=== PATIENT | male | born 1975 | race Caucasian/White ===

== ENCOUNTER 2017-01-09 00:44 | Emergency (ER) | payer SELFPAY ==
--- NOTE | 2017-01-09 01:02 | Emergency Department Record ---
History of Present Illness - General Chief complaint: Nausea, Vomiting, Diarrhea Stated complaint: FOOD POISONING Time Seen by Provider: 01/09/17 01:01 Source: Patient Mode of Arrival: Ambulatory Limitations: No limitations - History of Present Illness Initial comments: The patient is here due to a one hour hx of nausea, vomiting, and loose stools. He denies any fever, chills, dysuria, abdominal or back pain. The patient states he vomited multiple times over the last hour but now feels a lot better. He denies any recent sick contacts and states he may have eaten some bad pizza a few hours ago. MD complaint: Diarrhea, Nausea, Vomiting Onset/Timin -: Hour(s) Description of Vomiting: Bilious Description of Diarrhea: Water Associated Abdominal Pain: Yes (Only when having diarrhea) Associated Symptoms: Fever/chills, Nausea/vomiting - Related Data Previous Rx's Medication Instructions Recorded Ciprofloxacin HCl [Cipro] 500 mg PO Q12HR #14 tablet 01/09/17 Ondansetron [Zofran Odt] 4 mg SL .Q4-6H PRN #8 tab.rapdis 01/09/17 Allergies Allergy/AdvReac Type Severity Reaction Status Date / Time Penicillins Allergy SWELLING Verified 01/09/17 00:49 OF THE FACE Sulfa (Sulfonamide Allergy PT UNSURE Verified 01/09/17 00:49 Antibiotics) OF REACTION Travel Screening - Travel/Exposure Within Last 30 Days Have you traveled within the last 30 days?: No Review of Systems Constitutional: Denies: Chills, Fever Eyes: Denies: Eye discharge ENT: Denies: Congestion Respiratory: Denies: Cough, Dyspnea Past Medical History - SOCIAL HISTORY Smoking Status: Heavy tobacco smoker (>10/day) Alcohol Use: None Drug Use: None - RESPIRATORY Hx Respiratory Disorders: No - CARDIOVASCULAR Hx Cardio Disorders: No - NEURO Hx Neuro Disorders: No - GI Hx GI Disorders: No - Hx Genitourinary Disorders: No - ENDOCRINE Hx Endocrine Disorders: No - MUSCULOSKELETAL Hx Musculoskeletal Disorders: No - PSYCH Hx Psych Problems: Yes Hx Anxiety: Yes - HEMATOLOGY/ONCOLOGY Hx Hematology/Oncology Disorders: No Family Medical History Any Significant Family History?: Yes Hx Seizures: Father Hx Stroke: Father Physical Exam - General General Appearance: Alert, Oriented x3, Cooperative, No acute distress - Head Head exam: Atraumatic, Normocephalic, Normal inspection - Eye Eye exam: Normal appearance, PERRL - ENT Throat exam: Normal inspection. negative: Tonsillar erythema, Tonsillar exudate - Neck Neck exam: Normal inspection, Full ROM. negative: Tenderness - Respiratory Respiratory exam: Normal lung sounds bilaterally. negative: Respiratory distress - Cardiovascular Cardiovascular Exam: Regular rate, Normal rhythm, Normal heart sounds - GI/Abdominal GI/Abdominal exam: Soft, Normal bowel sounds. negative: Guarding, Rebound, Rigid, Tenderness (The abdomen is very soft and nontender in all 4 quads.) - Extremities Extremities exam: Normal inspection, Full ROM, Normal capillary refill. negative: Tenderness - Neurological Neurological exam: Normal gait. negative: Abnormal gait Course - Reevaluation(s) Reevaluation #1: The patient feels 100% improved and denies any pain, nausea or dysuria. I did discuss the urine result and he denies any urinary issues. I explained to him that there does seem to be a minor infection and he should see his PCP next week for recheck. 01/09/17 01:48 Medical Decision Making - Data Complexity MDM Data: Labs Ordered and/or Reviewed Disposition Disposition: Discharge Clinical Impression: Gastroenteritis Disposition: Home, Self-Care Condition: (1) Good Instructions: Acute Nausea and Vomiting (ED) Additional Instructions: Please take the Zofran for nausea and take the Cipro as directed. Please see your PCP for recheck next week. Return to the ER if worse. Prescriptions: Ciprofloxacin HCl [Cipro] 500 mg PO Q12HR #14 tablet Ondansetron [Zofran Odt] 4 mg SL .Q4-6H PRN #8 tab.rapdis PRN Reason: Nausea Forms: Patient Portal Access Time of Disposition: 01:50
[2017-01-09] MEDS ORDERED: ONDANSETRON 4 MG ODT TABLET SL ONE (01:05)
[2017-01-09 01:26] LABS: URINE APPEARANCE CLEAR; URINE BILIRUBIN NEGATIVE (NEGATIVE); URINE BLOOD SMALL (NEGATIVE); URINE COLOR YELLOW; URINE GLUCOSE (UA) NEGATIVE (NEGATIVE); URINE KETONE NEGATIVE (NEGATIVE); URINE LEUKOCYTE ESTERASE TRACE (NEGATIVE); URINE NITRITE NEGATIVE (NEGATIVE); URINE PROTEIN NEGATIVE (NEGATIVE); URINE UROBILINOGEN 0.2 E.U./dL (0.20 - 1.00)
[2017-01-09 01:42] LABS: URINE AMORPHOUS SEDIMENT 1+; URINE BACTERIA 1+
[2017-01-10 20:22] LABS: GC SPECIMEN TYPE Urine
== END 2017-01-09 01:58 | disposition home or self-care (01) ==
LOC: ER 00:44
DX: K52.9 Noninfective gastroenteritis and colitis, unspecified (principal); R11.2 Nausea with vomiting, unspecified; R82.99 Other abnormal findings in urine
CPT/HCPCS: 81001; 99283

== ENCOUNTER 2017-04-05 22:39 | Emergency (ER) | payer MEDICAID ==
--- NOTE | 2017-04-05 23:20 | Emergency Department Record ---
History of Present Illness - General Chief complaint: Abscess Stated complaint: ABSCESS Time Seen by Provider: 04/05/17 23:00 Source: Patient Mode of Arrival: Ambulatory Limitations: No limitations - History of Present Illness Initial comments: The patient is here due to a 2 day hx of an infection to the L lower abdomen. The patient states he felt like he had an ingrown hair over the L lower abdomen and he picked at it to try to get it out and to drain. It then worsened to the point now it is red and swollen and draining. He denies any AP, fever, or dysuria. MD complaint: Abscess/boil Onset/Timin -: Days(s) Location: Genitals Severity scale (1-10): 9 Quality: Sharp Consistency: Constant, Getting worse Improves with: Cold therapy Worsens with: None Treatments Prior to Arrival: Attempted to drain pus at home, OTC topical medication - Related Data Previous Rx's Medication Instructions Recorded Clindamycin HCl [Cleocin HCl] 300 mg PO QID #28 capsule 04/05/17 Allergies Allergy/AdvReac Type Severity Reaction Status Date / Time Penicillins Allergy SWELLING Verified 01/09/17 00:49 OF THE FACE Sulfa (Sulfonamide Allergy PT UNSURE Verified 01/09/17 00:49 Antibiotics) OF REACTION Travel Screening - Travel/Exposure Within Last 30 Days Have you traveled within the last 30 days?: No Review of Systems Constitutional: Denies: Chills, Fever Eyes: Denies: Eye discharge ENT: Denies: Congestion Respiratory: Denies: Cough Past Medical History - SOCIAL HISTORY Smoking Status: Heavy tobacco smoker (>10/day) Alcohol Use: None Drug Use: None - RESPIRATORY Hx Respiratory Disorders: No - CARDIOVASCULAR Hx Cardio Disorders: No - NEURO Hx Neuro Disorders: No - GI Hx GI Disorders: No - Hx Genitourinary Disorders: No - ENDOCRINE Hx Endocrine Disorders: No - MUSCULOSKELETAL Hx Musculoskeletal Disorders: No - PSYCH Hx Psych Problems: Yes Hx Anxiety: Yes - HEMATOLOGY/ONCOLOGY Hx Hematology/Oncology Disorders: No Family Medical History Any Significant Family History?: Yes Hx Seizures: Father Hx Stroke: Father Physical Exam - General General Appearance: Alert, Cooperative, No acute distress - Head Head exam: Atraumatic, Normocephalic, Normal inspection - Eye Eye exam: Normal appearance, PERRL - Respiratory Respiratory exam: Normal lung sounds bilaterally. negative: Respiratory distress - Cardiovascular Cardiovascular Exam: Regular rate, Normal rhythm, Normal heart sounds - GI/Abdominal GI/Abdominal exam: Soft, Other (There is a 1.5x1.5 cm area of erythema with a hard nodule in the center located over the L lower abdomen. There is a central area of necrosis present that is draining a small amount of purulence. There is no fluctuance.) - Extremities Image of Full Body: 1 - Location of the skin infection. Course Vital Signs 04/05/17 22:50 Temperature 97.4 F L Pulse Rate 79 Respiratory 18 Rate Blood Pressure 100/60 Pulse Ox 98 - Reevaluation(s) Reevaluation #1: I did explain to the patient that it appears that he has an infected skin abscess. At this time there is nothing to drain. He is to use warm compresses and take the Clindamycin as directed. 04/05/17 23:18 Disposition Disposition: Discharge Clinical Impression: Skin infection Disposition: Home, Self-Care Condition: (1) Good Instructions: Abscess (ED) Additional Instructions: Please use the warm compresses as directed. Please take the Clindamycin as directed. Return to the ER if worse. Prescriptions: Clindamycin HCl [Cleocin HCl] 300 mg PO QID #28 capsule Forms: Patient Portal Access Time of Disposition: 23:20 Quality - Quality Measures Quality Measures: N/A - Blood Pressure Screening View Details: Yes Blood Pressure Classification: Normal BP Reading Systolic Measurement: 100 Diastolic Measurement: 60 Screening for High Blood Pressure: < Normal BP, F/U Not Required > [G8783] Normal BP Follow-up Interventions: No follow-up required
[2017-04-05] MEDS: CLINDAMYCIN 150 MG CAP PO ONE ×2 (23:24)
== END 2017-04-05 23:32 | disposition home or self-care (01) ==
LOC: ER 22:39
DX: L02.211 Cutaneous abscess of abdominal wall (principal)
CPT/HCPCS: 99282

== ENCOUNTER 2017-05-14 23:27 | Emergency (ER) | payer MEDICAID ==
[2017-05-14] MEDS ORDERED: ONDANSETRON 4 MG ODT TABLET SL ONE (23:43)
[2017-05-14] MEDS ORDERED: HYOSCYAMINE SULFATE ODT 0.125 MG TAB.SUBL SL ONE (23:45)
--- NOTE | 2017-05-14 23:48 | Emergency Department Record ---
History of Present Illness - General Chief complaint: Vomiting Stated complaint: FREEZING,BURNING UP Time Seen by Provider: 05/14/17 23:29 Source: Patient Mode of Arrival: Ambulatory Limitations: No limitations - History of Present Illness Initial comments: 41 yo male presents to ED with a CC of intermittent nausea and vomiting for the past 5 hours associated with loose stools. Patient reports eating a "frozen pizza that came back up on me". Patient reports feeling "hot and cold", denies fever symptoms. Patient also reports that an "ingrown hair" to the left suprapubic region that he "popped" several days ago. Patient denies health problems at his baseline. MD complaint: Diarrhea, Nausea, Vomiting Onset/Timin -: Hour(s) Associated Abdominal Pain: Yes Location: LLQ Severity scale (1-10): 7 Quality: Sharp Consistency: Intermittent Associated Symptoms: Other ("feeling hot and cold") - Related Data Previous Rx's Medication Instructions Recorded Hyoscyamine Sulfate [Levsin-Sl] 0.25 mg SL Q6H PRN #20 tab.subl 05/14/17 Ondansetron [Zofran Odt] 4 mg PO Q8H PRN #20 tab.rapdis 05/14/17 Allergies Allergy/AdvReac Type Severity Reaction Status Date / Time Penicillins Allergy SWELLING Verified 01/09/17 00:49 OF THE FACE Sulfa (Sulfonamide Allergy PT UNSURE Verified 01/09/17 00:49 Antibiotics) OF REACTION Travel Screening - Travel/Exposure Within Last 30 Days Have you traveled within the last 30 days?: No - Travel Symptoms Symptom Screening: None Review of Systems Constitutional: Reports: Chills, Malaise. Denies: Fever, Night sweats Eyes: Denies: Eye discharge, Eye pain ENT: Denies: Congestion, Ear pain, Epistaxis Respiratory: Denies: Cough, Dyspnea Cardiovascular: Denies: Chest pain, Dyspnea on exertion Endocrine: Denies: Fatigue, Heat or cold intolerance Gastrointestinal: Reports: Diarrhea, Nausea, Vomiting Genitourinary: Denies: Incontinence, Retention Musculoskeletal: Denies: Arthralgia, Back pain, Gout, Joint swelling Skin: Denies: Bruising, Change in color Neurological: Denies: Abnormal gait, Confusion, Headache, Seizure Psychiatric: Denies: Anxiety Hematological/Lymphatic: Denies: Anemia, Blood Clots Past Medical History - SOCIAL HISTORY Smoking Status: Heavy tobacco smoker (>10/day) - RESPIRATORY Hx Respiratory Disorders: No - CARDIOVASCULAR Hx Cardio Disorders: No - NEURO Hx Neuro Disorders: No - GI Hx GI Disorders: No - Hx Genitourinary Disorders: No - ENDOCRINE Hx Endocrine Disorders: No - MUSCULOSKELETAL Hx Musculoskeletal Disorders: No - PSYCH Hx Psych Problems: Yes Hx Anxiety: Yes - HEMATOLOGY/ONCOLOGY Hx Hematology/Oncology Disorders: No Family Medical History Any Significant Family History?: Yes Hx Seizures: Father Hx Stroke: Father Physical Exam - General General Appearance: Alert, Oriented x3, Cooperative, No acute distress, Other ( on his phone on examination) Limitations: No limitations - Head Head exam: Atraumatic, Normocephalic, Normal inspection Head exam detail: negative: Abrasion, Contusion, Spann's sign, General tenderness, Hematoma, Laceration - Eye Eye exam: Normal appearance. negative: Conjunctival injection, Periorbital swelling, Periorbital tenderness, Scleral icterus - ENT Ear exam: negative: Auricular hematoma, Auricular trauma Nasal Exam: negative: Active bleeding, Discharge, Dried blood, Foreign body Mouth exam: negative: Drooling, Laceration, Muffled voice, Tongue elevation - Neck Neck exam: Normal inspection. negative: Meningismus, Tenderness - Respiratory Respiratory exam: Normal lung sounds bilaterally. negative: Rales, Respiratory distress, Rhonchi, Stridor - Cardiovascular Cardiovascular Exam: Regular rate, Normal rhythm, Normal heart sounds - GI/Abdominal GI/Abdominal exam: Soft, Other (healing 0.5 cm ruptured ingrown hair to the left lower quadrant/suprapubic region). negative: Rebound, Rigid, Tenderness - Rectal Rectal exam: Deferred - exam: Deferred - Extremities Extremities exam: Normal inspection. negative: Calf tenderness, Pedal edema, Tenderness - Back Back exam: Denies: CVA tenderness (R), CVA tenderness (L) - Neurological Neurological exam: Alert, Normal gait, Oriented X3 - Psychiatric Psychiatric exam: Normal affect, Normal mood - Skin Skin exam: Normal color. negative: Abrasion Type of lesion: negative: abrasion Course Vital Signs 05/14/17 23:34 Temperature 98.4 F Pulse Rate [ 84 Pulse Ox Probe] Respiratory 20 Rate Blood Pressure 130/83 [Left Arm] Pulse Ox 96 - Reevaluation(s) Reevaluation #1: 05/15/17 00:13 Patient reassessed, is again on his phone having a verbal altercation and reports "I need to go". Patient declined PO challenge at this time. Prescriptions sent to pharmacy for his nausea/vomiting symptoms. Disposition Disposition: Discharge Clinical Impression: Vomiting and diarrhea Disposition: Home, Self-Care Condition: (2) Stable Instructions: Acute Nausea and Vomiting (ED) Additional Instructions: Return to ED if your symptoms worsen or if you have any concerns. Zofran and Levsin as directed. Follow-up with your family doctor in 3-5 days as directed. Prescriptions: Hyoscyamine Sulfate [Levsin-Sl] 0.25 mg SL Q6H PRN #20 tab.subl PRN Reason: Abdominal Pain Ondansetron [Zofran Odt] 4 mg PO Q8H PRN #20 tab.rapdis PRN Reason: Nausea/Vomiting Forms: Patient Portal Access Time of Disposition: 23:51 Quality - Quality Measures Quality Measures: N/A - Blood Pressure Screening Does Patient Have Any of the Following: No Blood Pressure Classification: Pre-Hypertensive BP Reading Systolic Measurement: 130 Diastolic Measurement: 83 Screening for High Blood Pressure: < Pre-Hypertensive BP, F/U Documented > [ G8950] Pre-Hypertensive Follow-up Interventions: Referral to alternative/primary care provider.
== END 2017-05-15 00:19 | disposition home or self-care (01) ==
LOC: ER 23:27
DX: R11.2 Nausea with vomiting, unspecified (principal); R19.7 Diarrhea, unspecified
CPT/HCPCS: 99282

== ENCOUNTER 2017-07-10 18:44 | Emergency (ER) | payer MEDICAID ==
[2017-07-10 20:08] LABS: BASO % 0.5 % (0-6); EOS % 6.3 % (0-6); HEMATOCRIT 45.3 % (42.0-52.0); HEMOGLOBIN 15.5 gm/dl (14.0-18.0); LYMPH % 25.3 % (16-45); MEAN CELL VOLUME 85.6 fl (81-97); MEAN CORPUSCULAR HEMOGLOBIN 29.3 pg (27-33); MEAN CORPUSCULAR HGB CONC 34.2 g/dl (32-36); MONO % 9.9 % (0-9); PLATELET COUNT 231 K/uL (130-400); RED BLOOD COUNT 5.29 M/uL (4.40-5.70); RED CELL DISTRIBUTION WIDTH 13.9 % (11.5-14.5); WHITE BLOOD COUNT W/O DIFF 8.1 K/uL (4.2-12.2)
--- NOTE | 2017-07-10 21:03 | Emergency Department Record ---
History of Present Illness - General Chief complaint: Rash Stated complaint: BLISTERS/RASH UNDER BOTH ARMS Time Seen by Provider: 07/10/17 19:38 Source: Patient Mode of Arrival: Ambulatory Limitations: No limitations - History of Present Illness Initial comments: pt has widespread rash under r axilla and r arm that is painful and that itches. it has been blistery and has had drainage. he also has 1 lesion on l arm that apears different. MD complaint: Rash Onset/Timin -: Week(s) Location: RUE Severity: Mild Severity scale (1-10): 9 Consistency: Getting worse Worsens with: Palpation, Movement Treatments Prior to Arrival: Attempted to drain pus at home, OTC topical medication - Related Data Previous Rx's Medication Instructions Recorded Hyoscyamine Sulfate [Levsin-Sl] 0.25 mg SL Q6H PRN #20 tab.subl 05/14/17 Acyclovir [Zovirax] 800 mg PO 5XD #50 tablet 07/10/17 Doxycycline Hyclate [Doxycycline] 100 mg PO BID #20 tab 07/10/17 Hydrocodone/Acetaminophen [[place] 1 each PO Q6HR #7 tablet 07/10/17 5-325 Tablet] Allergies Allergy/AdvReac Type Severity Reaction Status Date / Time Penicillins Allergy SWELLING Verified 01/09/17 00:49 OF THE FACE Sulfa (Sulfonamide Allergy PT UNSURE Verified 01/09/17 00:49 Antibiotics) OF REACTION Travel Screening - Travel/Exposure Within Last 30 Days Have you traveled within the last 30 days?: No Review of Systems Reviewed: No additional complaints except as noted below Constitutional: Reports: As per HPI. Denies: Chills, Fever, Malaise, Night sweats, Weakness, Weight change Eyes: Reports: As per HPI. Denies: Eye discharge, Eye pain, Photophobia, Vision change ENT: Reports: As per HPI. Denies: Congestion, Dental pain, Ear pain, Epistaxis , Hearing loss, Throat pain Respiratory: Reports: As per HPI. Denies: Cough, Dyspnea, Hemoptysis, Stridor, Wheezes Cardiovascular: Reports: As per HPI. Denies: Arrhythmia, Chest pain, Dyspnea on exertion, Edema, Murmurs, Orthopnea, Palpitations, Paroxysmal nocturnal dyspnea, Rheumatic Fever, Syncope Endocrine: Reports: As per HPI. Denies: Fatigue, Heat or cold intolerance, Polydipsia, Polyuria Gastrointestinal: Reports: As per HPI. Denies: Abdominal pain, Constipation, Diarrhea, Hematemesis, Hematochezia, Melena, Nausea, Vomiting Genitourinary: Reports: As per HPI. Denies: Dysuria, Frequency, Hematuria, Incontinence, Retention, Testicular pain, Testicular mass, Urgency Musculoskeletal: Reports: As per HPI. Denies: Arthralgia, Back pain, Gout, Joint swelling, Myalgia, Neck pain Skin: Reports: As per HPI. Denies: Bruising, Change in color, Change in hair/ nails, Lesions, Pruritus, Rash Neurological: Reports: As per HPI. Denies: Abnormal gait, Confusion, Headache, Numbness, Paresthesias, Seizure, Tingling, Tremors, Vertigo, Weakness Psychiatric: Reports: As per HPI. Denies: Anxiety, Auditory hallucinations, Depression, Homicidal thoughts, Suicidal thoughts, Visual hallucinations Hematological/Lymphatic: Reports: As per HPI. Denies: Anemia, Blood Clots, Easy bleeding, Easy bruising, Swollen glands Past Medical History - SOCIAL HISTORY Smoking Status: Light tobacco smoker (<10/day) Alcohol Use: None Drug Use: None - RESPIRATORY Hx Respiratory Disorders: No - CARDIOVASCULAR Hx Cardio Disorders: No - NEURO Hx Neuro Disorders: No - GI Hx GI Disorders: No - Hx Genitourinary Disorders: No - ENDOCRINE Hx Endocrine Disorders: No - MUSCULOSKELETAL Hx Musculoskeletal Disorders: No - PSYCH Hx Psych Problems: Yes Hx Anxiety: Yes - HEMATOLOGY/ONCOLOGY Hx Hematology/Oncology Disorders: No Family Medical History Any Significant Family History?: Yes Hx Seizures: Father Hx Stroke: Father Physical Exam - General General Appearance: Alert, Oriented x3, Cooperative, Mild distress - Head Head exam: Normal inspection - Eye Eye exam: Normal appearance, PERRL, EOMI Pupils: Normal accommodation - ENT ENT exam: Normal exam, Mucous membranes moist, Normal external ear exam, Normal orophraynx Ear exam: Normal external inspection. negative: External canal tenderness Nasal Exam: Normal inspection. negative: Discharge, Sinus tenderness Mouth exam: Normal external inspection, Tongue normal Teeth exam: Normal inspection. negative: Dental caries Throat exam: Normal inspection. negative: Tonsillar erythema, Tonsillar exudate - Neck Neck exam: Normal inspection, Full ROM. negative: Tenderness - Respiratory Respiratory exam: Normal lung sounds bilaterally. negative: Respiratory distress - Cardiovascular Cardiovascular Exam: Regular rate, Normal rhythm, Normal heart sounds - GI/Abdominal GI/Abdominal exam: Soft, Normal bowel sounds. negative: Tenderness - Rectal Rectal exam: Deferred - exam: Deferred - Extremities Extremities exam: Normal inspection, Full ROM, Normal capillary refill. negative: Tenderness - Back Back exam: Reports: Normal inspection, Full ROM. Denies: Muscle spasm, Rash noted, Tenderness Image of Body Front/Back: 1 - rash w vesicles , bulla, crusting, tender - Neurological Neurological exam: Alert, CN II-XII intact, Normal gait, Oriented X3 - Psychiatric Psychiatric exam: Normal affect, Normal mood - Skin Skin exam: Dry, Intact, Normal color, Warm Distribution of rash: RUE, LUE Description of rash: Blisters, Bullous, Erythematous, Macular, Papular, Swelling , Tenderness, Vesicular Course Vital Signs 07/10/17 19:08 Temperature 97.9 F Pulse Rate [ 82 Pulse Ox Probe] Respiratory 20 Rate Blood Pressure 139/74 [Left Arm] Pulse Ox 98 Medical Decision Making - Lab Data Result diagrams: 07/10/17 20:08 Lab Results 07/10/17 Range/Units 20:08 WBC 8.1 (4.2-12.2) K/uL RBC 5.29 (4.40-5.70) M/uL Hgb 15.5 (14.0-18.0) gm/dl Hct 45.3 (42.0-52.0) % MCV 85.6 (81-97) fl MCH 29.3 (27-33) pg MCHC 34.2 (32-36) g/dl RDW 13.9 (11.5-14.5) % Plt Count 231 (130-400) K/uL MPV 9.0 (7.4-10.4) fl Gran % 58.0 (47-80) % Lymphocytes % 25.3 (16-45) % Monocytes % 9.9 H (0-9) % Eosinophils % 6.3 H (0-6) % Basophils % 0.5 (0-6) % Disposition Disposition: Discharge Clinical Impression: MRSA (methicillin resistant Staphylococcus aureus) Herpes zoster Qualifiers: Herpes zoster complications: without complications Qualified Code(s): B02.9 - Zoster without complications Disposition: Home, Self-Care Condition: (1) Good Instructions: MRSA (Methicillin-Resistant Staphylococcus Aureus) (ED), Shingles (ED) Additional Instructions: follow up with family doctor. return sooner if worse. do not touch. Prescriptions: Hydrocodone/Acetaminophen [[place] 5-325 Tablet] 1 each PO Q6HR #7 tablet Acyclovir [Zovirax] 800 mg PO 5XD #50 tablet Doxycycline Hyclate [Doxycycline] 100 mg PO BID #20 tab Quality - Quality Measures Quality Measures: N/A - Blood Pressure Screening Does Patient Have Any of the Following: No Blood Pressure Classification: Pre-Hypertensive BP Reading Systolic Measurement: 139 Diastolic Measurement: 74 Screening for High Blood Pressure: < Pre-Hypertensive BP, F/U Documented > [ G8950] Pre-Hypertensive Follow-up Interventions: Follow-up with rescreen every year.
[2017-07-10] MEDS ORDERED: DOXYCYCLINE HYCLATE 100 MG CAPSULE PO ONE (21:12)
[2017-07-10] MEDS ORDERED: ACYCLOVIR 200 MG CAPSULE PO ONE (21:12)
[2017-07-10] MEDS ORDERED: HYDROCODONE/APAP 5/325MG TABLET PO ONE (21:12)
[2017-07-12 20:26] LABS: SPECIMEN TYPE Not specified
== END 2017-07-10 21:26 | disposition home or self-care (01) ==
LOC: ER 18:44
DX: B02.8 Zoster with other complications (principal); A49.02 Methicillin resistant Staphylococcus aureus infection, unspecified site
CPT/HCPCS: 85025; 99283

== ENCOUNTER 2017-08-22 05:31 | Emergency (ER) | payer MEDICAID ==
[2017-08-22] MEDS ORDERED: ONDANSETRON HCL IV 4 MG/2 ML VIAL IV ONE (05:44)
[2017-08-22] MEDS ORDERED: KETOROLAC 30 MG/ML VIAL IVP ONE (05:44)
[2017-08-22] MEDS ORDERED: 0.9 % SODIUM CHLORIDE 1,000 ML BAG IV ONE (05:44)
[2017-08-22 05:53] LABS: BASO % 0.6 % (0-6); EOS % 8.9 % (0-6); GRAN % 37.3 % (47-80); HEMATOCRIT 44.9 % (42.0-52.0); LYMPH % 42.9 % (16-45); MEAN CELL VOLUME 87.2 fl (81-97); MEAN CORPUSCULAR HEMOGLOBIN 29.1 pg (27-33); MEAN CORPUSCULAR HGB CONC 33.4 g/dl (32-36); MEAN PLATELET VOLUME 9.2 fl (7.4-10.4); MONO % 10.3 % (0-9); PLATELET COUNT 257 K/uL (130-400); RED BLOOD COUNT 5.15 M/uL (4.40-5.70); RED CELL DISTRIBUTION WIDTH 14.6 % (11.5-14.5); WHITE BLOOD COUNT W/O DIFF 6.9 K/uL (4.2-12.2)
--- NOTE | 2017-08-22 05:57 | Emergency Department Record ---
History of Present Illness - General Chief complaint: Flank Pain Stated complaint: ABD PAIN, VOMITING Time Seen by Provider: 08/22/17 05:43 Source: Patient Mode of Arrival: Ambulatory Limitations: No limitations - History of Present Illness Initial comments: pt awakened w l flank pain that radiates into llq. pt has nausea and vomited Onset/Timin -: Hour(s) Location: Left flank Radiation: LLQ Severity: Severe Severity scale (1-10): 10 Quality: Sharp, Stabbing Consistency: Constant Improves with: None Worsens with: None Reports: Nausea/vomiting - Related Data Allergies Allergy/AdvReac Type Severity Reaction Status Date / Time Penicillins Allergy SWELLING Verified 01/09/17 00:49 OF THE FACE Sulfa (Sulfonamide Allergy PT UNSURE Verified 01/09/17 00:49 Antibiotics) OF REACTION Travel Screening - Travel/Exposure Within Last 30 Days Have you traveled within the last 30 days?: No Review of Systems Reviewed: No additional complaints except as noted below Constitutional: Reports: As per HPI. Denies: Chills, Fever, Malaise, Night sweats, Weakness, Weight change Eyes: Reports: As per HPI. Denies: Eye discharge, Eye pain, Photophobia, Vision change ENT: Reports: As per HPI. Denies: Congestion, Dental pain, Ear pain, Epistaxis , Hearing loss, Throat pain Respiratory: Reports: As per HPI. Denies: Cough, Dyspnea, Hemoptysis, Stridor, Wheezes Cardiovascular: Reports: As per HPI. Denies: Arrhythmia, Chest pain, Dyspnea on exertion, Edema, Murmurs, Orthopnea, Palpitations, Paroxysmal nocturnal dyspnea, Rheumatic Fever, Syncope Endocrine: Reports: As per HPI. Denies: Fatigue, Heat or cold intolerance, Polydipsia, Polyuria Gastrointestinal: Reports: As per HPI. Denies: Abdominal pain, Constipation, Diarrhea, Hematemesis, Hematochezia, Melena, Nausea, Vomiting Genitourinary: Reports: As per HPI. Denies: Dysuria, Frequency, Hematuria, Incontinence, Retention, Testicular pain, Testicular mass, Urgency Musculoskeletal: Reports: As per HPI. Denies: Arthralgia, Back pain, Gout, Joint swelling, Myalgia, Neck pain Skin: Reports: As per HPI. Denies: Bruising, Change in color, Change in hair/ nails, Lesions, Pruritus, Rash Neurological: Reports: As per HPI. Denies: Abnormal gait, Confusion, Headache, Numbness, Paresthesias, Seizure, Tingling, Tremors, Vertigo, Weakness Psychiatric: Reports: As per HPI. Denies: Anxiety, Auditory hallucinations, Depression, Homicidal thoughts, Suicidal thoughts, Visual hallucinations Hematological/Lymphatic: Reports: As per HPI. Denies: Anemia, Blood Clots, Easy bleeding, Easy bruising, Swollen glands Past Medical History - SOCIAL HISTORY Smoking Status: Light tobacco smoker (<10/day) - RESPIRATORY Hx Respiratory Disorders: No - CARDIOVASCULAR Hx Cardio Disorders: No - NEURO Hx Neuro Disorders: No - GI Hx GI Disorders: No - Hx Genitourinary Disorders: No - ENDOCRINE Hx Endocrine Disorders: No - MUSCULOSKELETAL Hx Musculoskeletal Disorders: No - PSYCH Hx Psych Problems: Yes Hx Anxiety: Yes - HEMATOLOGY/ONCOLOGY Hx Hematology/Oncology Disorders: No Family Medical History Any Significant Family History?: Yes Hx Seizures: Father Hx Stroke: Father Physical Exam - General General Appearance: Alert, Oriented x3, Cooperative, Mild distress - Head Head exam: Normal inspection - Eye Eye exam: Normal appearance, PERRL, EOMI Pupils: Normal accommodation - ENT ENT exam: Normal exam, Mucous membranes moist, Normal external ear exam, Normal orophraynx Ear exam: Normal external inspection. negative: External canal tenderness Nasal Exam: Normal inspection. negative: Discharge, Sinus tenderness Mouth exam: Normal external inspection, Tongue normal Teeth exam: Normal inspection. negative: Dental caries Throat exam: Normal inspection. negative: Tonsillar erythema, Tonsillar exudate - Neck Neck exam: Normal inspection, Full ROM. negative: Tenderness - Respiratory Respiratory exam: Normal lung sounds bilaterally. negative: Respiratory distress - Cardiovascular Cardiovascular Exam: Regular rate, Normal rhythm, Normal heart sounds - GI/Abdominal GI/Abdominal exam: Soft, Normal bowel sounds, Tenderness (llq) - Rectal Rectal exam: Deferred - exam: Deferred - Extremities Extremities exam: Normal inspection, Full ROM, Normal capillary refill. negative: Tenderness - Back Back exam: Reports: Normal inspection, Full ROM. Denies: Muscle spasm, Rash noted, Tenderness - Neurological Neurological exam: Alert, CN II-XII intact, Normal gait, Oriented X3 - Psychiatric Psychiatric exam: Normal affect, Normal mood - Skin Skin exam: Dry, Intact, Normal color, Warm Course Vital Signs 08/22/17 05:41 Temperature 97.7 F Pulse Rate [ 79 Pulse Ox Probe] Respiratory 22 Rate Blood Pressure 122/88 [Left Arm] Pulse Ox 99 Medical Decision Making - Lab Data Result diagrams: 08/22/17 05:40 08/22/17 05:40 Disposition Disposition: Transfer Clinical Impression: Renal lithiasis Hydronephrosis Qualifiers: Hydronephrosis type: with ureteral calculous obstruction Qualified Code(s): N13.2 - Hydronephrosis with renal and ureteral calculous obstruction Disposition: Acute [facility] For Transfer: 6mm renal lithiasis Accepting Physician: karlene howe and jerald Time Discussed w/Accepting Physician: 07:01 Forms: Patient Portal Access Quality - Quality Measures Quality Measures: N/A - Blood Pressure Screening Does Patient Have Any of the Following: No Blood Pressure Classification: Pre-Hypertensive BP Reading Systolic Measurement: 120 Diastolic Measurement: 77 Screening for High Blood Pressure: < Pre-Hypertensive BP, F/U Documented > [ G8950] Pre-Hypertensive Follow-up Interventions: Follow-up with rescreen every year.
[2017-08-22 06:07] LABS: BLOOD UREA NITROGEN 12 mg/dL (6-20); CREATININE 0.9 mg/dL (0.7-1.2); EST GLOMERULAR FILTRATION RATE > 60 mL/min
[2017-08-22 06:08] LABS: TOTAL PROTEIN 7.3 g/dL (6.6-8.7)
[2017-08-22 06:10] LABS: GLUCOSE,RANDOM 120 mg/dL (74-109)
[2017-08-22 06:12] LABS: ALT/SGPT 11 U/L (<41)
[2017-08-22 06:13] LABS: ALB/GLOB RATIO 1.6 (1.1-1.8); ALBUMIN 4.5 g/dL (4.0-5.0); ALKALINE PHOSPHATASE 53 U/L (40-129); AST/SGOT 15 U/L (10.0-50.0)
[2017-08-22 07:09] LABS: URINE BILIRUBIN NEGATIVE (NEGATIVE); URINE BLOOD LARGE (NEGATIVE); URINE COLOR YELLOW; URINE GLUCOSE (UA) NEGATIVE (NEGATIVE); URINE KETONE NEGATIVE (NEGATIVE); URINE LEUKOCYTE ESTERASE TRACE (NEGATIVE); URINE NITRITE NEGATIVE (NEGATIVE); URINE PROTEIN TRACE (NEGATIVE); URINE UROBILINOGEN 0.2 E.U./dL (0.20 - 1.00)
[2017-08-22 07:19] LABS: URINE APPEARANCE SL CLOUDY; URINE BACTERIA FEW; URINE EPITHELIAL CELLS 0 - 2 (FEW); URINE MUCUS LIGHT; URINE WBC 0 - 2 (0-2/hpf)
--- NOTE | 2017-08-22 09:52 | CT SCAN REPORT ---
EXAM: CT OF THE ABDOMEN AND PELVIS WITHOUT CONTRAST HISTORY: ABDOMINAL PAIN. TECHNIQUE: Sequential axial images were obtained from the diaphragms through the ischiorectal fossa without intravenous or oral contrast administration. FINDINGS: The visualized lung bases appear normal. The nonopacified liver, gallbladder, pancreas and spleen appear normal. The adrenal glands and spleen appear normal. There is a 6 mm obstructing calculus in the left mid ureter. This produces mild left hydronephrosis. No additional calculi appreciated. The urinary bladder appears normal. The small bowel appears normal. The colon appears normal. The osseous structures are normal. IMPRESSION: 6 MM MINIMALLY OBSTRUCTING CALCULUS IN THE LEFT MID URETER. NO ADDITIONAL CALCULI ARE APPRECIATED. JOB NUMBER: [id number] [facility]
== END 2017-08-22 07:35 | disposition short-term general hospital (02) ==
LOC: ER 05:31
DX: N13.2 Hydronephrosis with renal and ureteral calculous obstruction (principal); R11.2 Nausea with vomiting, unspecified
CPT/HCPCS: 99285 ×2; 96374; 96375; 85025; 80053; 81001; 74176; J1885; J2405; J7030

== ENCOUNTER 2017-08-31 17:16 | Emergency (ER) | payer MEDICAID ==
--- NOTE | 2017-08-31 18:37 | Emergency Department Record ---
History of Present Illness - General Chief Complaint: Abdominal Pain Stated Complaint: LOWER ABDOMINAL/LOWER BACK PAIN Time Seen by Provider: 08/31/17 18:29 Source: Patient Mode of Arrival: Ambulatory - History of Present Illness Initial Comments: 42 yo male presents with LLQ abdominal pain. The patient had a 6mm stone treated on 08/22/[address] Euceda at [facility]. He had a stent placed and removed. He has had persistent LLQ pain. NO fevers or chills. NO NVD. He has some constipation from the Laotto. He is on Laotto. Those are finished at this time. The patient had pain for several months prior to the stone care. MD Complaint: Abdominal pain Onset/Timin -: Days(s) Location: LLQ Radiation: LLQ Migration to: LLQ Severity: Moderate Quality: Sharp Consistency: Intermittent Improves With: Nothing Worsens With: Nothing Context: Recent surgery/procedure Associated Symptoms: Denies other symptoms - Related Data Previous Rx's Medication Instructions Recorded Naproxen [Naprosyn] 500 mg PO Q12H #20 tab. 08/31/17 Tamsulosin HCl [Flomax] 0.4 mg PO DAILY #10 cap.er.24h 08/31/17 Allergies Allergy/AdvReac Type Severity Reaction Status Date / Time Penicillins Allergy SWELLING Verified 08/31/17 17:54 OF THE FACE Sulfa (Sulfonamide Allergy PT UNSURE Verified 08/31/17 17:54 Antibiotics) OF REACTION Travel Screening - Travel/Exposure Within Last 30 Days Have you traveled within the last 30 days?: No - Travel/Exposure Within Last Year Have you traveled outside the [place] in the last year?: No - Additonal Travel Details Have you been exposed to anyone with a communicable illness?: No - Travel Symptoms Symptom Screening: None Review of Systems Constitutional: Denies: Chills, Fever, Malaise, Weakness Eyes: Denies: Eye discharge ENT: Denies: Congestion Respiratory: Denies: Cough, Hemoptysis, Stridor, Wheezes Cardiovascular: Denies: Chest pain, Palpitations, Syncope Gastrointestinal: Reports: Abdominal pain, Constipation. Denies: Diarrhea, Hematemesis, Hematochezia, Melena, Nausea, Vomiting Genitourinary: Reports: Hematuria. Denies: Dysuria, Frequency Musculoskeletal: Reports: Back pain (left sided). Denies: Arthralgia Skin: Denies: Bruising, Change in color, Rash Neurological: Denies: Headache, Numbness Psychiatric: Denies: Anxiety Hematological/Lymphatic: Denies: Easy bleeding, Easy bruising, Swollen glands Past Medical History - SOCIAL HISTORY Smoking Status: Former smoker Alcohol Use: None Drug Use: None - RESPIRATORY Hx Respiratory Disorders: No - CARDIOVASCULAR Hx Cardio Disorders: No - NEURO Hx Neuro Disorders: No - GI Hx GI Disorders: No - Hx Genitourinary Disorders: No - ENDOCRINE Hx Endocrine Disorders: No - MUSCULOSKELETAL Hx Musculoskeletal Disorders: No - PSYCH Hx Psych Problems: Yes Hx Anxiety: Yes - HEMATOLOGY/ONCOLOGY Hx Hematology/Oncology Disorders: No Family Medical History Any Significant Family History?: Yes Hx Seizures: Father Hx Stroke: Father Physical Exam - General General Appearance: Alert, Oriented x3, Cooperative, No acute distress Limitations: No limitations - Head Head exam: Atraumatic, Normal inspection - Eye Eye exam: Normal appearance, PERRL. negative: Conjunctival injection, Periorbital swelling - ENT ENT exam: Normal exam, Mucous membranes moist Ear exam: Normal external inspection Nasal Exam: Normal inspection Mouth exam: Normal external inspection - Neck Neck exam: Normal inspection, Full ROM. negative: Tenderness - Respiratory Respiratory exam: Normal lung sounds bilaterally. negative: Respiratory distress - Cardiovascular Cardiovascular Exam: Regular rate, Normal rhythm, Normal heart sounds - GI/Abdominal GI/Abdominal exam: Soft, Normal bowel sounds, Tenderness (mild LLQ). negative: Guarding, Hernia, Rebound, Rigid - Rectal Rectal exam: Deferred - exam: Deferred - Extremities Extremities exam: Normal inspection, Full ROM, Normal capillary refill. negative: Tenderness - Back Back exam: Reports: Normal inspection, Full ROM. Denies: Muscle spasm, Rash noted, Tenderness - Neurological Neurological exam: Alert, Normal gait, Oriented X3 - Psychiatric Psychiatric exam: Normal affect, Normal mood - Skin Skin exam: Dry, Intact, Normal color, Warm Course Vital Signs 08/31/17 18:21 Temperature 97.4 F L Pulse Rate 73 Respiratory 20 Rate Blood Pressure 128/82 Pulse Ox 97 - Reevaluation(s) Reevaluation #1: The CBC,CMP, and UA were reviewed No acute process. NO infection in the UA 08/31/17 19:17 08/31/17 19:[address] scan demonstrated hydronephrosis again but NO renal stone The patient will be referred back to the urology clinic with Dr Euceda Medical Decision Making - Lab Data Result diagrams: 08/31/17 18:55 08/31/17 18:55 Disposition Disposition: Discharge Clinical Impression: Hematuria, Flank pain, Hydronephrosis Disposition: Home, Self-Care Condition: (1) Good Instructions: Renal Colic (ED) Additional Instructions: Call tomorrow for follow up with Dr Euceda your urologist Return if you have fever, vomiting or any new concerns Stay hydrated Prescriptions: Naproxen [Naprosyn] 500 mg PO Q12H #20 tab. Tamsulosin HCl [Flomax] 0.4 mg PO DAILY #10 cap.er.24h Referrals: ROSMERY EUCEDA M.D. [MEDICAL DOCTOR] - Forms: Patient Portal Access Time of Disposition: 19:38 Quality - Quality Measures Quality Measures: N/A - Blood Pressure Screening Does Patient Have Any of the Following: No Blood Pressure Classification: Pre-Hypertensive BP Reading Systolic Measurement: 128 Diastolic Measurement: 82 Screening for High Blood Pressure: < Pre-Hypertensive BP, F/U Documented > [ G8950] Pre-Hypertensive Follow-up Interventions: Referral to alternative/primary care provider.
[2017-08-31] MEDS ORDERED: KETOROLAC 30 MG/ML VIAL IVP ONE (18:39)
[2017-08-31 19:00] LABS: BASO % 0.3 % (0-6); EOS % 4.9 % (0-6); GRAN % 60.2 % (47-80); HEMOGLOBIN 14.2 gm/dl (14.0-18.0); LYMPH % 24.4 % (16-45); MEAN CELL VOLUME 86.8 fl (81-97); MEAN CORPUSCULAR HGB CONC 32.3 g/dl (32-36); MEAN PLATELET VOLUME 8.7 fl (7.4-10.4); MONO % 10.2 % (0-9); PLATELET COUNT 262 K/uL (130-400); RED BLOOD COUNT 5.07 M/uL (4.40-5.70); RED CELL DISTRIBUTION WIDTH 14.2 % (11.5-14.5); WHITE BLOOD COUNT W/O DIFF 7.1 K/uL (4.2-12.2)
[2017-08-31 19:02] LABS: URINE APPEARANCE CLOUDY; URINE BILIRUBIN NEGATIVE (NEGATIVE); URINE BLOOD LARGE (NEGATIVE); URINE COLOR RED; URINE GLUCOSE (UA) NEGATIVE (NEGATIVE); URINE KETONE NEGATIVE (NEGATIVE); URINE LEUKOCYTE ESTERASE NEGATIVE (NEGATIVE); URINE NITRITE NEGATIVE (NEGATIVE); URINE UROBILINOGEN 0.2 E.U./dL (0.20 - 1.00)
[2017-08-31 19:13] LABS: BLOOD UREA NITROGEN 15 mg/dL (6-20); CREATININE 0.9 mg/dL (0.7-1.2); EST GLOMERULAR FILTRATION RATE > 60 mL/min; URINE EPITHELIAL CELLS 0 - 2 (FEW); URINE WBC 0 - 2 (0-2/hpf)
[2017-08-31 19:14] LABS: URINE BACTERIA NONE SEEN
[2017-08-31 19:15] LABS: GLUCOSE,RANDOM 102 mg/dL (74-109)
--- NOTE | 2017-09-01 08:24 | CT SCAN REPORT ---
EXAM: CT SCAN ABDOMEN/PELVIS WO CONTRAST HISTORY: LEFT LOWER QUADRANT PAIN, RECENT STONE. TECHNIQUE: Axial CT scan of the abdomen and pelvis performed without oral or IV contrast. COMPARISON: CT abdomen and pelvis 08/22/17. FINDINGS: There is still some persistent hydronephrosis on the left but the previously seen left ureteral calculus is no longer identified. No hydronephrosis or hydroureter on the right with no right ureteral calculus seen and no bladder calculus evident. No intrarenal calculi seen on either side. No calcified gallstones are seen within the gallbladder. Evaluation of the bowel and viscera is very limited without oral or IV contrast. Given this limitation, no definite hepatic, splenic, adrenal, pancreatic, or renal mass identified. Some prostate calcification again seen similar to before. I believe the appendix is visualized as a normal caliber structure with no appendicitis evident. No free intraperitoneal air or free intraperitoneal fluid evident. IMPRESSION: PERSISTENT MILD HYDRONEPHROSIS ON THE LEFT SIMILAR TO THAT SEEN ON 08/22/17, BUT THE PREVIOUSLY SEEN LEFT URETERAL CALCULUS IS NO LONGER SEEN. NO DEFINITE URINARY TRACT CALCULI IDENTIFIED TODAY. JOB NUMBER: [id number] [facility]
== END 2017-08-31 20:05 | disposition home or self-care (01) ==
LOC: ER 17:16
DX: R31.29 Other microscopic hematuria (principal); R10.32 Left lower quadrant pain; N13.30 Unspecified hydronephrosis
CPT/HCPCS: 99284 ×2; 96374; 85025; 80048; 81001; 74176; J1885

== ENCOUNTER 2018-03-03 04:04 | Emergency (ER) | payer SELFPAY ==
[2018-03-03] MEDS ORDERED: 0.9 % SODIUM CHLORIDE 1,000 ML BAG IV ONE (04:34)
[2018-03-03] MEDS ORDERED: ONDANSETRON HCL IV 4 MG/2 ML VIAL IVP ONE (04:35)
[2018-03-03] MEDS ORDERED: KETOROLAC 30 MG/ML VIAL IVP ONE (04:38)
--- NOTE | 2018-03-03 04:47 | Emergency Department Record ---
History of Present Illness - General Chief complaint: Flank Pain Stated complaint: VOMITING Time Seen by Provider: 03/03/18 04:24 Source: Patient, RN notes reviewed, Old records reviewed Mode of Arrival: Ambulatory Limitations: No limitations - History of Present Illness Initial comments: pt has r flank pain for 6 weeks but it became severe tonight. he also started vomiting. it feels like previous kidney stone Complaint: Other Onset/Timin -: Hour(s) Location: Right flank Radiation: RLQ Severity: Severe Severity scale (1-10): 9 Consistency: Constant, Getting worse Improves with: None Worsens with: None Reports: Denies other symptoms - Related Data Previous Rx's Medication Instructions Recorded Naproxen [Naprosyn] 500 mg PO Q12H #20 tab.dr 08/31/17 Tamsulosin HCl [Flomax] 0.4 mg PO DAILY #10 cap.er.24h 08/31/17 Promethazine HCl [Phenergan] 25 mg PO BID #10 tablet 03/03/18 Allergies Allergy/AdvReac Type Severity Reaction Status Date / Time Penicillins Allergy SWELLING Verified 08/31/17 17:54 OF THE FACE Sulfa (Sulfonamide Allergy PT UNSURE Verified 08/31/17 17:54 Antibiotics) OF REACTION Travel Screening - Travel/Exposure Within Last 30 Days Have you traveled within the last 30 days?: No - Travel Symptoms Symptom Screening: None Review of Systems Reviewed: No additional complaints except as noted below Constitutional: Reports: As per HPI. Denies: Chills, Fever, Malaise, Night sweats, Weakness, Weight change Eyes: Reports: As per HPI. Denies: Eye discharge, Eye pain, Photophobia, Vision change ENT: Reports: As per HPI. Denies: Congestion, Dental pain, Ear pain, Epistaxis , Hearing loss, Throat pain Respiratory: Reports: As per HPI. Denies: Cough, Dyspnea, Hemoptysis, Stridor, Wheezes Cardiovascular: Reports: As per HPI. Denies: Arrhythmia, Chest pain, Dyspnea on exertion, Edema, Murmurs, Orthopnea, Palpitations, Paroxysmal nocturnal dyspnea, Rheumatic Fever, Syncope Endocrine: Reports: As per HPI. Denies: Fatigue, Heat or cold intolerance, Polydipsia, Polyuria Gastrointestinal: Reports: As per HPI. Denies: Abdominal pain, Constipation, Diarrhea, Hematemesis, Hematochezia, Melena, Nausea, Vomiting Genitourinary: Reports: As per HPI. Denies: Dysuria, Frequency, Hematuria, Incontinence, Retention, Testicular pain, Testicular mass, Urgency Musculoskeletal: Reports: As per HPI. Denies: Arthralgia, Back pain, Gout, Joint swelling, Myalgia, Neck pain Skin: Reports: As per HPI. Denies: Bruising, Change in color, Change in hair/ nails, Lesions, Pruritus, Rash Neurological: Reports: As per HPI. Denies: Abnormal gait, Confusion, Headache, Numbness, Paresthesias, Seizure, Tingling, Tremors, Vertigo, Weakness Psychiatric: Reports: As per HPI. Denies: Anxiety, Auditory hallucinations, Depression, Homicidal thoughts, Suicidal thoughts, Visual hallucinations Hematological/Lymphatic: Reports: As per HPI. Denies: Anemia, Blood Clots, Easy bleeding, Easy bruising, Swollen glands Past Medical History - SOCIAL HISTORY Smoking Status: Former smoker Alcohol Use: None Drug Use: None - RESPIRATORY Hx Respiratory Disorders: No - CARDIOVASCULAR Hx Cardio Disorders: No - NEURO Hx Neuro Disorders: No - GI Hx GI Disorders: No - Hx Genitourinary Disorders: Yes Hx Kidney Stones: Yes - ENDOCRINE Hx Endocrine Disorders: No - MUSCULOSKELETAL Hx Musculoskeletal Disorders: No - PSYCH Hx Psych Problems: Yes Hx Anxiety: Yes - HEMATOLOGY/ONCOLOGY Hx Hematology/Oncology Disorders: No Family Medical History Any Significant Family History?: Yes Hx Seizures: Father Hx Stroke: Father Physical Exam - General General Appearance: Alert, Oriented x3, Cooperative, Moderate distress - Head Head exam: Normal inspection - Eye Eye exam: Normal appearance, PERRL, EOMI Pupils: Normal accommodation - ENT ENT exam: Normal exam, Mucous membranes moist, Normal external ear exam, Normal orophraynx Ear exam: Normal external inspection. negative: External canal tenderness Nasal Exam: Normal inspection. negative: Discharge, Sinus tenderness Mouth exam: Normal external inspection, Tongue normal Teeth exam: Normal inspection. negative: Dental caries Throat exam: Normal inspection. negative: Tonsillar erythema, Tonsillar exudate - Neck Neck exam: Normal inspection, Full ROM. negative: Tenderness - Respiratory Respiratory exam: Normal lung sounds bilaterally. negative: Respiratory distress - Cardiovascular Cardiovascular Exam: Normal rhythm, Normal heart sounds, Tachycardia - GI/Abdominal GI/Abdominal exam: Soft, Normal bowel sounds. negative: Tenderness - Rectal Rectal exam: Deferred - exam: Deferred - Extremities Extremities exam: Normal inspection, Full ROM, Normal capillary refill. negative: Tenderness - Back Back exam: Reports: CVA tenderness (R), Full ROM. Denies: Muscle spasm, Rash noted, Tenderness - Neurological Neurological exam: Alert, CN II-XII intact, Normal gait, Oriented X3 - Psychiatric Psychiatric exam: Normal affect, Normal mood - Skin Skin exam: Dry, Intact, Normal color, Warm Course Vital Signs 03/03/18 04:18 Temperature 97.1 F L Pulse Rate [ 129 H Pulse Ox Probe] Respiratory 24 Rate Blood Pressure 123/90 [Left Arm] Pulse Ox 97 - Reevaluation(s) Reevaluation #1: 03/03/18 07:24 pt feels better Medical Decision Making - Lab Data Result diagrams: 03/03/18 04:20 03/03/18 04:20 Disposition Disposition: Discharge Clinical Impression: Pancreatitis Qualifiers: Chronicity: acute Pancreatitis type: idiopathic Acute pancreatitis complication : no infection or necrosis Qualified Code(s): K85.00 - Idiopathic acute pancreatitis without necrosis or infection Vomiting Qualifiers: Vomiting type: unspecified Vomiting Intractability: intractable Nausea presence : with nausea Qualified Code(s): R11.2 - Nausea with vomiting, unspecified Disposition: Home, Self-Care Condition: (1) Good Instructions: Acute Nausea and Vomiting (ED), Pancreatitis (ED) Additional Instructions: follow up with family doctor and with GI doctor if symptoms continue. return sooner if worse. push fluids Prescriptions: Promethazine HCl [Phenergan] 25 mg PO BID #10 tablet Forms: Patient Portal Access Quality - Quality Measures Quality Measures: N/A - Blood Pressure Screening Does Patient Have Any of the Following: No Blood Pressure Classification: Pre-Hypertensive BP Reading Systolic Measurement: 108 Diastolic Measurement: 89 Screening for High Blood Pressure: < Pre-Hypertensive BP, F/U Documented > [ G8950] Pre-Hypertensive Follow-up Interventions: Follow-up with rescreen every year.
[2018-03-03 04:56] LABS: URINE APPEARANCE CLEAR; URINE BILIRUBIN NEGATIVE (NEGATIVE); URINE BLOOD TRACE-I (NEGATIVE); URINE COLOR YELLOW; URINE GLUCOSE (UA) NEGATIVE (NEGATIVE); URINE KETONE NEGATIVE (NEGATIVE); URINE LEUKOCYTE ESTERASE NEGATIVE (NEGATIVE); URINE NITRITE NEGATIVE (NEGATIVE); URINE PROTEIN NEGATIVE (NEGATIVE); URINE UROBILINOGEN 0.2 E.U./dL (0.20 - 1.00)
[2018-03-03 04:58] LABS: BASO % 0.8 % (0-6); EOS % 10.2 % (0-6); GRAN % 28.7 % (47-80); HEMATOCRIT 45.7 % (42.0-52.0); HEMOGLOBIN 15.6 gm/dl (14.0-18.0); LYMPH % 50.4 % (16-45); MEAN CELL VOLUME 85.9 fl (81-97); MEAN CORPUSCULAR HEMOGLOBIN 29.3 pg (27-33); MEAN CORPUSCULAR HGB CONC 34.1 g/dl (32-36); MEAN PLATELET VOLUME 9.3 fl (7.4-10.4); MONO % 9.9 % (0-9); PLATELET COUNT 270 K/uL (130-400); RED BLOOD COUNT 5.32 M/uL (4.40-5.70); RED CELL DISTRIBUTION WIDTH 14.3 % (11.5-14.5); WHITE BLOOD COUNT W/O DIFF 9.2 K/uL (4.2-12.2)
[2018-03-03] MEDS ORDERED: PROMETHAZINE HCL 12.5 MG in 0.9 % SODIUM CHLORIDE 100ML 100 ML IVPB ONE (06:10)
[2018-03-03 06:17] LABS: BLOOD UREA NITROGEN 11 mg/dL (6-20); EST GLOMERULAR FILTRATION RATE > 60 mL/min
[2018-03-03 06:18] LABS: TOTAL PROTEIN 7.2 g/dL (6.6-8.7)
[2018-03-03 06:20] LABS: GLUCOSE,RANDOM 102 mg/dL (74-109)
[2018-03-03 06:22] LABS: ALT/SGPT 11 U/L (<41); AST/SGOT 18 U/L (10.0-50.0)
[2018-03-03 06:23] LABS: ALB/GLOB RATIO 1.6 (1.1-1.8); ALBUMIN 4.4 g/dL (4.0-5.0); ALKALINE PHOSPHATASE 57 U/L (40-129); LIPASE 76 U/L (13-60)
[2018-03-03 06:46] LABS: AMPHETAMINE SCREEN URINE NOT DETECTED; BARBITURATE SCREEN URINE NOT DETECTED; BENZODIAZEPINE SCREEN URINE NOT DETECTED; COCAINE SCREEN URINE NOT DETECTED; METHADONE SCREEN URINE NOT DETECTED; METHAMPHETAMINE SCREEN NOT DETECTED; OPIATE SCREEN URINE NOT DETECTED; OXYCODONE SCREEN URINE NOT DETECTED; PHENCYCLIDINE SCREEN URINE NOT DETECTED; PROPOXYPHENE SCREEN URINE NOT DETECTED; THC SCREEN URINE NOT DETECTED; TRICYCLIC ANTIDEPRESSANT SCRN NOT DETECTED
--- NOTE | 2018-03-05 16:31 | CT SCAN REPORT ---
DATE: 03/03/2018 EXAM: CT OF THE ABDOMEN AND PELVIS. HISTORY: Abdominal pain. TECHNIQUE: Sequential axial images were obtained from the diaphragms through the ischiorectal fossa without intravenous contrast administration. FINDINGS: The visualized lung bases appear normal. The liver, gallbladder, pancreas, and spleen appear normal. The adrenal glands and kidneys appear normal. No CT findings suggestive of obstructive uropathy. The small bowel appears normal. The colon appears normal. The urinary bladder appears normal. The osseous structures are normal. IMPRESSION: NO ACUTE ABDOMINAL OR PELVIC DISEASE PROCESSES APPRECIATED. [facility]: [id number] [facility]
== END 2018-03-03 07:54 | disposition home or self-care (01) ==
LOC: ER 04:04
DX: K85.00 Idiopathic acute pancreatitis without necrosis or infection (principal); R11.2 Nausea with vomiting, unspecified; Z87.891 Personal history of nicotine dependence; Z87.442 Personal history of urinary calculi
CPT/HCPCS: 74176; 80053; 80305; 81003; 83690; 85025; 96361; 96365; 96375; 99284; J1885; J2405; J2550; J7030

== ENCOUNTER 2018-04-27 00:25 | Emergency (ER) | payer MEDICAID ==
--- NOTE | 2018-04-27 00:45 | Emergency Department Record ---
History of Present Illness - General Chief complaint: Flank Pain Stated complaint: RIGHT SIDE LOWER BACK PAIN Time Seen by Provider: 04/27/18 00:41 Source: Patient Mode of Arrival: Ambulatory Limitations: No limitations - History of Present Illness Initial comments: The patient is here due to worsening of his chronic abdominal and back pain. He states he always has pain over the R lower back and also has had RLQ AP for about 3 weeks. It has been getting worse for the last 2 weeks and tonight became more sharp. There has been no dysuria, hematuria, nausea or vomiting. The patient has had a kidney stone in the past on the L over a year ago. He also has been seen multiple times in the last 2 months due to AP and has had neg CT's for stones on 03/03, 04/06, and 04/10. The patient also denies any loss of appetite or fever. MD Complaint: Other Onset/Timin -: Week(s) Location: Abdomen Radiation: R flank Severity: Moderate Worsens with: None Reports: Denies other symptoms - Related Data Home Medications Medication Instructions Recorded Confirmed Last Taken Promethazine HCl [Phenergan] 25 mg PO BID PRN 04/27/18 04/27/18 Unknown Allergies Allergy/AdvReac Type Severity Reaction Status Date / Time Penicillins Allergy SWELLING Verified 08/31/17 17:54 OF THE FACE Sulfa (Sulfonamide Allergy PT UNSURE Verified 08/31/17 17:54 Antibiotics) OF REACTION Travel Screening - Travel/Exposure Within Last 30 Days Have you traveled within the last 30 days?: No Review of Systems Constitutional: Denies: Chills, Fever Eyes: Denies: Eye discharge ENT: Denies: Congestion Respiratory: Denies: Cough, Dyspnea Past Medical History - SOCIAL HISTORY Smoking Status: Former smoker Alcohol Use: None Drug Use: None - RESPIRATORY Hx Respiratory Disorders: No - CARDIOVASCULAR Hx Cardio Disorders: No - NEURO Hx Neuro Disorders: No - GI Hx GI Disorders: No - Hx Genitourinary Disorders: Yes Hx Kidney Stones: Yes - ENDOCRINE Hx Endocrine Disorders: No - MUSCULOSKELETAL Hx Musculoskeletal Disorders: No - PSYCH Hx Psych Problems: Yes Hx Anxiety: Yes - HEMATOLOGY/ONCOLOGY Hx Hematology/Oncology Disorders: Yes 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 negative: Tenderness - Respiratory Respiratory exam: Normal lung sounds bilaterally. negative: Respiratory distress - Cardiovascular Cardiovascular Exam: Regular rate, Normal rhythm, Normal heart sounds - GI/Abdominal GI/Abdominal exam: Soft, Normal bowel sounds, Tenderness (There is very mild RLQ tenderness to palpation in the pelvis. There is no McBurney's point tenderness.). negative: Distended, Guarding, Hypoactive bowel sounds, Mass, Rebound, Rigid - Extremities Extremities exam: Normal inspection, Full ROM, Normal capillary refill. negative: Tenderness Image of Full Body: 1 - Area of pain and tenderness. - Neurological Neurological exam: Alert, Normal gait. negative: Abnormal gait, Motor sensory deficit - Psychiatric Psychiatric exam: negative: Anxious Course Vital Signs 04/27/18 00:31 Temperature 98.5 F Pulse Rate 84 Respiratory 20 Rate Blood Pressure 123/86 Pulse Ox 97 - Reevaluation(s) Reevaluation #1: The patient is feeling much better and his nausea has resolved. I did explain to him that his lab tests are all WNL's. Due to the fact he has no fever, WBC elevation, anorexia, pain basically in the deep pelvis, a long hx of this same problem and [address]'s in the last 7 weeks I strongly doubt any acute abdominal pathology. He is to see his PCP next week for recheck and return to the ER for any worsening symptoms. 04/27/18 01:44 Medical Decision Making - Data Complexity MDM Data: Labs Ordered and/or Reviewed - Lab Data Result diagrams: 04/27/18 01:05 04/27/18 01:05 Disposition Disposition: Discharge Clinical Impression: Chronic abdominal pain Disposition: Home, Self-Care Condition: (2) Stable Instructions: Abdominal Pain (ED) Additional Instructions: Please continue your home medicines and see your family doctor GEMINI for recheck. Please return to the ER for any worsening pain, fever, vomiting, or blood in the urine. Forms: Patient Portal Access Time of Disposition: 01:46 Quality - Quality Measures Quality Measures: N/A - Blood Pressure Screening View Details: Yes Does Patient Have Any of the Following: No Blood Pressure Classification: Pre-Hypertensive BP Reading Systolic Measurement: 123 Diastolic Measurement: 86 Screening for High Blood Pressure: < Pre-Hypertensive BP, F/U Documented > [ G8950] Pre-Hypertensive Follow-up Interventions: Referral to alternative/primary care provider.
[2018-04-27] MEDS ORDERED: ACETAMINOPHEN 325 MG TAB PO ONE (00:57)
[2018-04-27 01:13] LABS: HEMATOCRIT 44.1 % (42.0-52.0); HEMOGLOBIN 15.2 gm/dl (14.0-18.0); MEAN CELL VOLUME 85.5 fl (81-97); MEAN CORPUSCULAR HEMOGLOBIN 29.5 pg (27-33); MEAN CORPUSCULAR HGB CONC 34.5 g/dl (32-36); MEAN PLATELET VOLUME 9.1 fl (7.4-10.4); PLATELET COUNT 238 K/uL (130-400); RED BLOOD COUNT 5.16 M/uL (4.40-5.70); WHITE BLOOD COUNT W/O DIFF 6.5 K/uL (4.2-12.2)
[2018-04-27 01:20] LABS: URINE APPEARANCE CLEAR; URINE BILIRUBIN NEGATIVE (NEGATIVE); URINE BLOOD SMALL (NEGATIVE); URINE COLOR YELLOW; URINE GLUCOSE (UA) NEGATIVE (NEGATIVE); URINE KETONE NEGATIVE (NEGATIVE); URINE LEUKOCYTE ESTERASE NEGATIVE (NEGATIVE); URINE NITRITE NEGATIVE (NEGATIVE); URINE PROTEIN NEGATIVE (NEGATIVE)
[2018-04-27 01:25] LABS: BLOOD UREA NITROGEN 9 mg/dL (6-20); EST GLOMERULAR FILTRATION RATE > 60 mL/min
[2018-04-27 01:26] LABS: TOTAL PROTEIN 7.1 g/dL (6.6-8.7)
[2018-04-27 01:28] LABS: GLUCOSE,RANDOM 119 mg/dL (74-109)
[2018-04-27 01:30] LABS: PLATELET ESTIMATE NORMAL (NORMAL)
[2018-04-27 01:31] LABS: ALB/GLOB RATIO 1.7 (1.1-1.8); ALBUMIN 4.5 g/dL (4.0-5.0); ALKALINE PHOSPHATASE 50 U/L (40-129); ALT/SGPT 7 U/L (<41); AST/SGOT 11 U/L (10.0-50.0); URINE EPITHELIAL CELLS 0 - 2 (FEW); URINE RBC 0 - 2 (NONE SEEN); URINE WBC 0 - 2 (0-2/hpf)
== END 2018-04-27 01:59 | disposition home or self-care (01) ==
LOC: ER 00:28
DX: G89.29 Other chronic pain (principal); R10.31 Right lower quadrant pain; R11.0 Nausea; M54.5 Low back pain; Z87.891 Personal history of nicotine dependence
CPT/HCPCS: 80053; 81001; 85027; 99283

== ENCOUNTER 2018-05-31 00:26 | Emergency (ER) | payer MEDICAID ==
[2018-05-31 00:38] LABS: URINE APPEARANCE CLEAR; URINE BILIRUBIN NEGATIVE (NEGATIVE); URINE BLOOD MODERATE (NEGATIVE); URINE COLOR YELLOW; URINE GLUCOSE (UA) NEGATIVE (NEGATIVE); URINE KETONE NEGATIVE (NEGATIVE); URINE LEUKOCYTE ESTERASE NEGATIVE (NEGATIVE); URINE NITRITE NEGATIVE (NEGATIVE); URINE PROTEIN NEGATIVE (NEGATIVE); URINE UROBILINOGEN 0.2 E.U./dL (0.20 - 1.00)
[2018-05-31] MEDS ORDERED: KETOROLAC 30 MG/ML VIAL IVP ONE (00:44)
[2018-05-31] MEDS ORDERED: ONDANSETRON HCL IV 4 MG/2 ML VIAL IVP ONE (00:44)
[2018-05-31] MEDS ORDERED: 0.9 % SODIUM CHLORIDE 1000ML 1,000 ML IV SCH (00:45)
--- NOTE | 2018-05-31 00:49 | Emergency Department Record ---
History of Present Illness - General Chief Complaint: Abdominal Pain Stated Complaint: ABDOMINAL PAIN Time Seen by Provider: 05/31/18 00:31 Source: Patient Mode of Arrival: Ambulatory Limitations: No limitations - History of Present Illness Initial Comments: 42 yo male presents to ED for evaluation of right sided lower abdominal pain symptoms that began this evening. Patient reports nausea/vomiting symptoms this evening prompting ED visit. Patient denies fevers, chills, or recent illness. Patient does report flank pain for 2-3 weeks, reports previous history of kidney stone several months ago that required retrieval. 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 MD Complaint: Abdominal pain Onset/Timin -: Hour(s) Location: RLQ Radiation: None Migration to: No migration Severity: Moderate Severity scale (1-10): 7 Quality: Sharp Consistency: Constant Improves With: Nothing Worsens With: Nothing Associated Symptoms: Denies other symptoms, Nausea, Vomiting - Related Data Previous Rx's Medication Instructions Recorded Promethazine HCl [Phenergan] 25 mg PO Q8H PRN #15 tablet 05/31/18 Allergies Allergy/AdvReac Type Severity Reaction Status Date / Time Penicillins Allergy SWELLING Verified 05/31/18 00:29 OF THE FACE Sulfa (Sulfonamide Allergy PT UNSURE Verified 05/31/18 00:29 Antibiotics) OF REACTION Travel Screening - Travel/Exposure Within Last 30 Days Have you traveled within the last 30 days?: No - Travel Symptoms Symptom Screening: Vomiting Review of Systems Constitutional: Denies: Chills, Fever, Malaise, Night sweats Eyes: Denies: Eye discharge, Eye pain ENT: Denies: Congestion, Ear pain, Epistaxis Respiratory: Denies: Cough, Dyspnea Cardiovascular: Denies: Chest pain, Dyspnea on exertion Endocrine: Denies: Fatigue, Heat or cold intolerance Gastrointestinal: Reports: Abdominal pain, Nausea, Vomiting Genitourinary: Denies: Incontinence, Retention Musculoskeletal: Reports: Back pain. Denies: Arthralgia, Gout, Joint swelling Skin: Denies: Bruising, Change in color Neurological: Denies: Abnormal gait, Confusion, Headache, Seizure Psychiatric: Denies: Anxiety Hematological/Lymphatic: Denies: Anemia, Blood Clots Past Medical History - SOCIAL HISTORY Smoking Status: Former smoker Alcohol Use: None Drug Use: None - RESPIRATORY Hx Respiratory Disorders: No - CARDIOVASCULAR Hx Cardio Disorders: No - NEURO Hx Neuro Disorders: No - GI Hx GI Disorders: No - Hx Genitourinary Disorders: Yes Hx Kidney Stones: Yes - ENDOCRINE Hx Endocrine Disorders: No - MUSCULOSKELETAL Hx Musculoskeletal Disorders: No - PSYCH Hx Psych Problems: Yes Hx Anxiety: Yes - HEMATOLOGY/ONCOLOGY Hx Hematology/Oncology Disorders: Yes 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 negative: Conjunctival injection, Periorbital swelling, Periorbital tenderness, Scleral icterus - ENT Ear exam: negative: Auricular hematoma, Auricular trauma Nasal Exam: negative: Active bleeding, Discharge, Dried blood, Foreign body Mouth exam: negative: Drooling, Laceration, Muffled voice, Tongue elevation - Neck Neck exam: Normal inspection. negative: Meningismus, Tenderness - Respiratory Respiratory exam: Normal lung sounds bilaterally. negative: Rales, Respiratory distress, Rhonchi, Stridor - Cardiovascular Cardiovascular Exam: Regular rate, Normal rhythm, Normal heart sounds - GI/Abdominal GI/Abdominal exam: Soft, Tenderness, Other (Mild TTP suprapubic region, no rebound, guarding present.). negative: Rebound, Rigid - Rectal Rectal exam: Deferred - exam: Deferred - Extremities Extremities exam: Normal inspection. negative: Calf tenderness, Pedal edema, Tenderness - Back Back exam: Denies: CVA tenderness (R), CVA tenderness (L) - Neurological Neurological exam: Alert, Normal gait, Oriented X3 - Psychiatric Psychiatric exam: Normal affect, Normal mood - Skin Skin exam: Normal color. negative: Abrasion Type of lesion: negative: abrasion Course Vital Signs 05/31/18 00:33 Temperature 97.9 F Pulse Rate [ 87 Pulse Ox Probe] Respiratory 20 Rate Blood Pressure 118/97 [Left Arm] Pulse Ox 98 - Reevaluation(s) Reevaluation #1: 05/31/18 01:19 Labs reviewed and are grossly unremarkable for an acute process/ UA reviewed: 3-6 RBCs No WBCs No bacteria No Epi's Patient is back from CT imaging, resting comfortably at this time. Reevaluation #2: 05/31/18 01:53 CT Abdomen and Pelvis: No obstructive left-sided nephrolithiasis, no ureteral stones No acute findings, normal appendix Patient was reassessed, currently sleeping. Patient updated on all results, reports improvement in his pain symptoms, and appears stable for discharge at this time. Medical Decision Making - Lab Data Result diagrams: 05/31/18 00:45 05/31/18 00:45 Lab Results 05/31/18 Range/Units 00:38 Urine Color Yellow Urine Appearance Clear Urine pH 5.5 (5.0-8.0) Ur Specific Gardner >= 1.030 (1.002-1.030) Urine Protein Negative (NEGATIVE) Urine Glucose (UA) Negative (NEGATIVE) Urine Ketones Negative (NEGATIVE) Urine Blood Moderate (NEGATIVE) Urine Nitrite Negative (NEGATIVE) Urine Bilirubin Negative (NEGATIVE) Urine Urobilinogen 0.2 (0.20 - 1.00) E.U./dL Ur Leukocyte Esterase Negative (NEGATIVE) Disposition Disposition: Discharge Clinical Impression: Abdominal pain Qualifiers: Abdominal location: right lower quadrant Qualified Code(s): R10.31 - Right lower quadrant pain Disposition: Home, Self-Care Condition: (2) Stable Instructions: Abdominal Pain (ED) Additional Instructions: Return to ED if your symptoms worsen or if you have any concerns. Phenergan as directed. Follow-up with your family doctor in 1-3 days as directed. Prescriptions: Promethazine HCl [Phenergan] 25 mg PO Q8H PRN #15 tablet PRN Reason: Nausea/Vomiting Forms: Patient Portal Access Time of Disposition: 01:56 Quality - Quality Measures Quality Measures: N/A - Blood Pressure Screening Does Patient Have Any of the Following: No Blood Pressure Classification: Hypertensive Reading Systolic Measurement: 118 Diastolic Measurement: 97 Screening for High Blood Pressure: < First Hypertensive BP, F/U Documented > [ G8950] First Hypertensive Follow-up Interventions: Referral to alternative/primary care provider.
[2018-05-31 00:50] LABS: HEMATOCRIT 47.9 % (42.0-52.0); HEMOGLOBIN 16.2 gm/dl (14.0-18.0); MEAN CELL VOLUME 85.1 fl (81-97); MEAN CORPUSCULAR HEMOGLOBIN 28.8 pg (27-33); MEAN CORPUSCULAR HGB CONC 33.8 g/dl (32-36); MEAN PLATELET VOLUME 9.3 fl (7.4-10.4); PLATELET COUNT 275 K/uL (130-400); RED BLOOD COUNT 5.63 M/uL (4.40-5.70); RED CELL DISTRIBUTION WIDTH 14.5 % (11.5-14.5); WHITE BLOOD COUNT W/O DIFF 6.9 K/uL (4.2-12.2)
[2018-05-31] MEDS ORDERED: PROMETHAZINE HCL 12.5 MG in 0.9 % SODIUM CHLORIDE 100ML 100 ML IVPB ONE (01:00)
[2018-05-31 01:10] LABS: BLOOD UREA NITROGEN 8 mg/dL (6-20); CREATININE 0.9 mg/dL (0.7-1.2); EST GLOMERULAR FILTRATION RATE > 60 mL/min
[2018-05-31 01:11] LABS: TOTAL PROTEIN 7.6 g/dL (6.6-8.7)
[2018-05-31 01:13] LABS: GLUCOSE,RANDOM 131 mg/dL (74-109)
[2018-05-31 01:15] LABS: ALB/GLOB RATIO 1.6 (1.1-1.8); ALBUMIN 4.7 g/dL (4.0-5.0); ALKALINE PHOSPHATASE 61 U/L (40-129); ALT/SGPT 9 U/L (<41); AST/SGOT 17 U/L (10.0-50.0); LIPASE 80 U/L (13-60)
[2018-05-31 01:19] LABS: URINE BACTERIA NONE SEEN; URINE EPITHELIAL CELLS 0 - 2 (FEW); URINE WBC 0 - 2 (0-2/hpf)
--- NOTE | 2018-06-02 08:46 | CT SCAN REPORT ---
EXAM: CT OF THE ABDOMEN AND PELVIS WITHOUT CONTRAST HISTORY: RIGHT LOWER QUADRANT PAIN. TECHNIQUE: Sequential axial images were obtained from the diaphragms through the ischiorectal fossa without intravenous or oral contrast administration. FINDINGS: The visualized lung bases appear normal. The liver, gallbladder, pancreas and spleen appear normal. The adrenal glands and kidneys appear normal. There is a tiny nonobstructing calculus in the superior pole of the left kidney. The small bowel appears normal. The appendix is visualized and appears normal. The colon appears normal. The urinary bladder appears normal. The osseous structures are normal. IMPRESSION: NO ACUTE ABDOMINAL OR PELVIC DISEASE PROCESS IS APPRECIATED. JOB NUMBER: [id number] MTDD
== END 2018-05-31 02:10 | disposition home or self-care (01) ==
LOC: ER 00:26
DX: R10.31 Right lower quadrant pain (principal); R11.2 Nausea with vomiting, unspecified; Z87.442 Personal history of urinary calculi; Z87.891 Personal history of nicotine dependence
CPT/HCPCS: 99284 ×2; 96365; 96375; 96361; 83690; 80053; 81001; 85027; 74176; J1885; J2550; J7030

== ENCOUNTER 2018-09-29 04:51 | Emergency (ER) | payer MEDICAID ==
[2018-09-29] MEDS ORDERED: ONDANSETRON HCL IV 4 MG/2 ML VIAL IVP ONE (05:15)
[2018-09-29] MEDS ORDERED: 0.9 % SODIUM CHLORIDE 1,000 ML BAG IV ONE (05:16)
[2018-09-29 05:19] LABS: HEMATOCRIT 47.4 % (42.0-52.0); MEAN CELL VOLUME 86.5 fl (81-97); MEAN CORPUSCULAR HEMOGLOBIN 29.2 pg (27-33); MEAN CORPUSCULAR HGB CONC 33.8 g/dl (32-36); MEAN PLATELET VOLUME 9.3 fl (7.4-10.4); PLATELET COUNT 238 K/uL (130-400); RED BLOOD COUNT 5.48 M/uL (4.40-5.70); RED CELL DISTRIBUTION WIDTH 14.7 % (11.5-14.5); WHITE BLOOD COUNT W/O DIFF 7.7 K/uL (4.2-12.2)
[2018-09-29] MEDS ORDERED: KETOROLAC 30 MG/ML VIAL IVP ONE (05:21)
--- NOTE | 2018-09-29 05:24 | Emergency Department Record ---
History of Present Illness - General Chief complaint: Nausea, Vomiting, Diarrhea Stated complaint: N/V/D Time Seen by Provider: 09/29/18 05:11 Source: Patient Mode of Arrival: Ambulatory Limitations: No limitations - History of Present Illness Initial comments: pt woke up with sudden onset of r flank pain n/v/d complaint: Abdominal pain, Diarrhea, Nausea, Vomiting Onset/Timin -: Hour(s) Description of Vomiting: Bilious Associated Abdominal Pain: Yes Location: RLQ Radiation: R flank Severity: Moderate Severity scale (1-10): 8 Quality: Sharp Consistency: Constant Improves with: None Worsens with: None Associated Symptoms: Nausea/vomiting - Related Data Home Medications Medication Instructions Recorded Confirmed Last Taken Dicyclomine HCl [Bentyl] 10 mg PO Q8H 09/29/18 09/29/18 Unknown Allergies Allergy/AdvReac Type Severity Reaction Status Date / Time Penicillins Allergy SWELLING Verified 05/31/18 00:29 OF THE FACE Sulfa (Sulfonamide Allergy PT UNSURE Verified 05/31/18 00:29 Antibiotics) OF REACTION ondansetron [From Zofran] AdvReac NAUSEA Verified 09/29/18 05:25 Travel Screening - Travel/Exposure Within Last 30 Days Have you traveled within the last 30 days?: No - Travel Symptoms Symptom Screening: Diarrhea, Vomiting Review of Systems Reviewed: No additional complaints except as noted below Constitutional: Reports: As per HPI. Denies: Chills, Fever, Malaise, Night sweats, Weakness, Weight change Eyes: Reports: As per HPI. Denies: Eye discharge, Eye pain, Photophobia, Vision change ENT: Reports: As per HPI. Denies: Congestion, Dental pain, Ear pain, Epistaxis , Hearing loss, Throat pain Respiratory: Reports: As per HPI. Denies: Cough, Dyspnea, Hemoptysis, Stridor, Wheezes Cardiovascular: Reports: As per HPI. Denies: Arrhythmia, Chest pain, Dyspnea on exertion, Edema, Murmurs, Orthopnea, Palpitations, Paroxysmal nocturnal dyspnea, Rheumatic Fever, Syncope Endocrine: Reports: As per HPI. Denies: Fatigue, Heat or cold intolerance, Polydipsia, Polyuria Gastrointestinal: Reports: As per HPI. Denies: Abdominal pain, Constipation, Diarrhea, Hematemesis, Hematochezia, Melena, Nausea, Vomiting Genitourinary: Reports: As per HPI. Denies: Dysuria, Frequency, Hematuria, Incontinence, Retention, Testicular pain, Testicular mass, Urgency Musculoskeletal: Reports: As per HPI. Denies: Arthralgia, Back pain, Gout, Joint swelling, Myalgia, Neck pain Skin: Reports: As per HPI. Denies: Bruising, Change in color, Change in hair/ nails, Lesions, Pruritus, Rash Neurological: Reports: As per HPI. Denies: Abnormal gait, Confusion, Headache, Numbness, Paresthesias, Seizure, Tingling, Tremors, Vertigo, Weakness Psychiatric: Reports: As per HPI. Denies: Anxiety, Auditory hallucinations, Depression, Homicidal thoughts, Suicidal thoughts, Visual hallucinations Hematological/Lymphatic: Reports: As per HPI. 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 negative: External canal tenderness Nasal Exam: Normal inspection. negative: Discharge, Sinus tenderness Mouth exam: Normal external inspection, Tongue normal Teeth exam: Normal inspection. negative: Dental caries Throat exam: Normal inspection. negative: Tonsillar erythema, Tonsillar exudate - Neck Neck exam: Normal inspection, Full ROM. negative: Tenderness - Respiratory Respiratory exam: Normal lung sounds bilaterally. negative: Respiratory distress - Cardiovascular Cardiovascular Exam: Regular rate, Normal rhythm, Normal heart sounds - GI/Abdominal GI/Abdominal exam: Soft, Normal bowel sounds. negative: Tenderness - Rectal Rectal exam: Deferred - exam: Deferred - Extremities Extremities exam: Normal inspection, Full ROM, Normal capillary refill. negative: Tenderness - Back Back exam: Reports: Normal inspection, Full ROM. Denies: Muscle spasm, Rash noted, Tenderness - Neurological Neurological exam: Alert, CN II-XII intact, Normal gait, Oriented X3 - Psychiatric Psychiatric exam: Normal affect, Normal mood - Skin Skin exam: Dry, Intact, Normal color, Warm Course Vital Signs 09/29/18 04:58 Temperature 97.7 F Pulse Rate 85 Respiratory 20 Rate Blood Pressure 122/82 Pulse Ox 100 - Reevaluation(s) Reevaluation #1: 09/29/18 06:24 care being assumed by dr morales pending ct results Medical Decision Making - Lab Data Result diagrams: 09/29/18 05:10 09/29/18 05:10 Disposition Forms: Patient Portal Access Quality - Blood Pressure Screening Does Patient Have Any of the Following: No Blood Pressure Classification: Pre-Hypertensive BP Reading Systolic Measurement: 122 Diastolic Measurement: 82 Screening for High Blood Pressure: < Pre-Hypertensive BP, F/U Documented > [ G8950]
[2018-09-29] MEDS ORDERED: PROMETHAZINE HCL 12.5 MG in 0.9 % SODIUM CHLORIDE 100ML 100 ML IVPB ONE (05:25)
[2018-09-29 05:29] LABS: BLOOD UREA NITROGEN 10 mg/dL (6-20); CREATININE 1.1 mg/dL (0.7-1.2); EST GLOMERULAR FILTRATION RATE > 60 mL/min
[2018-09-29 05:30] LABS: LIPASE 77 U/L (13-60); TOTAL PROTEIN 7.4 g/dL (6.6-8.7)
[2018-09-29 05:32] LABS: GLUCOSE,RANDOM 125 mg/dL (74-109)
[2018-09-29 05:34] LABS: ALT/SGPT 9 U/L (<41); AST/SGOT 13 U/L (10.0-50.0)
[2018-09-29 05:35] LABS: ALB/GLOB RATIO 1.4 (1.1-1.8); ALBUMIN 4.3 g/dL (4.0-5.0); ALKALINE PHOSPHATASE 64 U/L (55-149)
[2018-09-29 05:43] LABS: URINE APPEARANCE CLEAR; URINE BILIRUBIN SMALL (NEGATIVE); URINE BLOOD SMALL (NEGATIVE); URINE COLOR YELLOW; URINE GLUCOSE (UA) NEGATIVE (NEGATIVE); URINE KETONE TRACE (NEGATIVE); URINE LEUKOCYTE ESTERASE NEGATIVE (NEGATIVE); URINE NITRITE NEGATIVE (NEGATIVE); URINE PROTEIN NEGATIVE (NEGATIVE)
[2018-09-29 05:45] LABS: URINE BACTERIA NONE SEEN; URINE EPITHELIAL CELLS 0 - 2 (FEW); URINE WBC 0 - 2 (0-2/hpf)
--- NOTE | 2018-09-29 06:53 | Emergency Department Record ---
History of Present Illness - General Chief complaint: Nausea, Vomiting, Diarrhea Stated complaint: N/V/D Time Seen by Provider: 09/29/18 05:11 Source: Patient Mode of Arrival: Ambulatory Limitations: No limitations - History of Present Illness MD complaint: Abdominal pain, Diarrhea, Nausea, Vomiting Onset/Timin -: Hour(s) Description of Vomiting: Bilious Associated Abdominal Pain: Yes Location: RLQ Radiation: R flank Severity: Moderate Severity scale (1-10): 8 Quality: Sharp Consistency: Constant Improves with: None Worsens with: None Associated Symptoms: Nausea/vomiting - Related Data Home Medications Medication Instructions Recorded Confirmed Last Taken Dicyclomine HCl [Bentyl] 10 mg PO Q8H 09/29/18 09/29/18 Unknown Allergies Allergy/AdvReac Type Severity Reaction Status Date / Time Penicillins Allergy SWELLING Verified 05/31/18 00:29 OF THE FACE Sulfa (Sulfonamide Allergy PT UNSURE Verified 05/31/18 00:29 Antibiotics) OF REACTION ondansetron [From Zofran] AdvReac NAUSEA Verified 09/29/18 05:25 Travel Screening - Travel/Exposure Within Last 30 Days Have you traveled within the last 30 days?: No - Travel Symptoms Symptom Screening: Diarrhea, Vomiting Review of Systems Constitutional: Reports: As per HPI. Denies: Chills, Fever, Malaise, Night sweats, Weakness, Weight change Eyes: Reports: As per HPI. Denies: Eye discharge, Eye pain, Photophobia, Vision change ENT: Reports: As per HPI. Denies: Congestion, Dental pain, Ear pain, Epistaxis , Hearing loss, Throat pain Respiratory: Reports: As per HPI. Denies: Cough, Dyspnea, Hemoptysis, Stridor, Wheezes Cardiovascular: Reports: As per HPI. Denies: Arrhythmia, Chest pain, Dyspnea on exertion, Edema, Murmurs, Orthopnea, Palpitations, Paroxysmal nocturnal dyspnea, Rheumatic Fever, Syncope Endocrine: Reports: As per HPI. Denies: Fatigue, Heat or cold intolerance, Polydipsia, Polyuria Gastrointestinal: Reports: As per HPI. Denies: Abdominal pain, Constipation, Diarrhea, Hematemesis, Hematochezia, Melena, Nausea, Vomiting Genitourinary: Reports: As per HPI. Denies: Dysuria, Frequency, Hematuria, Incontinence, Retention, Testicular pain, Testicular mass, Urgency Musculoskeletal: Reports: As per HPI. Denies: Arthralgia, Back pain, Gout, Joint swelling, Myalgia, Neck pain Skin: Reports: As per HPI. Denies: Bruising, Change in color, Change in hair/ nails, Lesions, Pruritus, Rash Neurological: Reports: As per HPI. Denies: Abnormal gait, Confusion, Headache, Numbness, Paresthesias, Seizure, Tingling, Tremors, Vertigo, Weakness Psychiatric: Reports: As per HPI. Denies: Anxiety, Auditory hallucinations, Depression, Homicidal thoughts, Suicidal thoughts, Visual hallucinations Hematological/Lymphatic: Reports: As per HPI. 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 Mar. The patient was here due to the acute onset of R flank pain with nausea, vomiting, and diarrhea. He now feels 100% improved. He has no pain or nausea, or discomfort. I did explain to the patient the need for F/U with [facility] due to the distal esophagus appearing slightly abnormal on CT. He states he just had an EGD and was diagnosed with Barretts Esophagus. He is scheduled for a colonoscopy next week and is to bring the CT report to the exam. On exam presently his abdomen is very soft and nontender. He is up walking with no problems. 09/29/18 06:49 09/29/18 07:05 Medical Decision Making - Data Complexity MDM Data: X-Ray Ordered and/or Reviewed - Lab Data Result diagrams: 09/29/18 05:10 09/29/18 05:10 Lab Results 09/29/18 09/29/18 09/29/18 Range/Units 05:10 05:10 05:45 WBC 7.7 (4.2-12.2) K/uL RBC 5.48 (4.40-5.70) M/uL Hgb 16.0 (14.0-18.0) gm/dl Hct 47.4 (42.0-52.0) % MCV 86.5 (81-97) fl MCH 29.2 (27-33) pg MCHC 33.8 (32-36) g/dl RDW 14.7 H (11.5-14.5) % Plt Count 238 (130-400) K/uL MPV 9.3 (7.4-10.4) fl Neutrophils % 47.0 (47-80) % Band Neutrophils % 0.0 (0-5) % Eosinophils % Not Reportable Basophils % Not Reportable Lymphocytes 33.0 (16-45) % Monocytes 9.0 (0-9) % Basophils 0.0 (0-6) % Eosinophil Count 11.0 H (0-6) % Sodium 141 (136-145) mmol/L Potassium 4.0 (3.4-4.5) mmol/L Chloride 104 (98-107) mmol/L Carbon Dioxide 24.0 (22-29) mmol/L Anion Gap 13.0 (7-16) BUN 10 (6-20) mg/dL Creatinine 1.1 (0.7-1.2) mg/dL Estimated GFR > 60 mL/min Random Glucose 125 H (74-109) mg/dL Calcium 9.2 (8.6-10.0) mg/dL Total Bilirubin 0.40 (0.2-1.0) mg/dL AST 13 (10.0-50.0) U/L ALT 9 (<41) U/L Alkaline Phosphatase 64 (55-149) U/L Total Protein 7.4 (6.6-8.7) g/dL Albumin 4.3 (4.0-5.0) g/dL Globulin 3.1 (1.4-4.8) gm/dL Albumin/Globulin Ratio 1.4 (1.1-1.8) Lipase 77 H (13-60) U/L Urine Color Yellow Urine Appearance Clear Urine pH 5.5 (5.0-8.0) Ur Specific Alpine >= 1.030 (1.002-1.030) Urine Protein Negative (NEGATIVE) Urine Glucose (UA) Negative (NEGATIVE) Urine Ketones Trace H (NEGATIVE) Urine Blood Small H (NEGATIVE) Urine Nitrite Negative (NEGATIVE) Urine Bilirubin Small H (NEGATIVE) Urine Urobilinogen 1.0 (0.20 - 1.00) E.U./dL Ur Leukocyte Esterase Negative (NEGATIVE) Urine RBC 3 - 6 (NONE SEEN) Urine WBC 0 - 2 (0-2/hpf) Ur Epithelial Cells 0 - 2 (FEW) Urine Bacteria None seen - Radiology Data Radiology results: Report reviewed (CT: Neg for any acute abnormality. Mild thickening of the distal esophagus, prob underdistension but esophagitis or neoplasm not excluded.) Disposition Disposition: Discharge Clinical Impression: Flank pain, acute Disposition: Home, Self-Care Condition: (2) Stable Instructions: Acute Nausea and Vomiting (ED) Additional Instructions: PLease continue your regular medicines and please see your [facility] doctor next week as directed. Please show them the CT from today and return to the ER for any worsening symptoms. Forms: Patient Portal Access Time of Disposition: 06:53 Quality - Quality Measures Quality Measures: N/A - Blood Pressure Screening View Details: Yes Does Patient Have Any of the Following: No Blood Pressure Classification: Pre-Hypertensive BP Reading Systolic Measurement: 122 Diastolic Measurement: 82 Screening for High Blood Pressure: < Pre-Hypertensive BP, F/U Documented > [ G8950] Pre-Hypertensive Follow-up Interventions: Referral to alternative/primary care provider.
--- NOTE | 2018-10-01 13:22 | CT SCAN REPORT ---
EXAM: CT SCAN ABDOMEN/PELVIS WO CONTRAST HISTORY: RIGHT FLANK/RIGHT LOWER QUADRANT PAIN FOR THREE HOURS. PRIOR LITHOTRIPSY. TECHNIQUE: Thin-collimation helical CT examination of the abdomen and pelvis is performed without oral or intravenous contrast administration. Lack of oral and IV contrast utilization limits evaluation of the bowel and solid viscera respectively. COMPARISON: CT abdomen and pelvis without contrast dated 05/31/2018. FINDINGS: The lung bases are clear. No pleural or pericardial effusion. The heart is not enlarged. There is apparent mild wall thickening of the distal esophagus. While this likely relates to incomplete distention, a mucosal abnormality such as esophagitis cannot be excluded. The liver, spleen, pancreas, adrenal glands, and kidneys remain normal in appearance. The gallbladder is unremarkable and there is no biliary ductal dilatation. The vasculature, as visualized, is unremarkable. No intra-abdominal nor retroperitoneal lymphadenopathy. No pelvic mass, lymphadenopathy, or free pelvic fluid. No intrinsic urinary bladder abnormality is seen though evaluation is limited by lack of distention. No gross bowel dilatation nor bowel wall thickening. No definite evidence of appendicitis though the tip of the appendix is borderline to mildly prominent in caliber. No free intraperitoneal air. No new lytic or blastic bone lesion. IMPRESSION: 1. NO DEFINITE EVIDENCE OF APPENDICITIS THOUGH THE TIP OF THE APPENDIX IS BORDERLINE TO MILDLY PROMINENT IN CALIBER MEASURING 6.5 MM. 2. APPARENT BORDERLINE TO MILD WALL THICKENING OF THE DISTAL ESOPHAGUS, DISCUSSED ABOVE. JOB NUMBER: [id number] [facility]
== END 2018-09-29 07:00 | disposition home or self-care (01) ==
LOC: ER 04:51
DX: R10.31 Right lower quadrant pain (principal); R11.2 Nausea with vomiting, unspecified; R19.7 Diarrhea, unspecified; F17.210 Nicotine dependence, cigarettes, uncomplicated
CPT/HCPCS: 74176; 80053; 81001; 83690; 85027; 96365; 96375; 99284; J1885; J2550; J7030

== ENCOUNTER 2018-10-02 21:53 | Emergency (ER) | payer MEDICAID ==
--- NOTE | 2018-10-02 22:01 | Emergency Department Record ---
History of Present Illness - General Stated Complaint: ABDOMINAL PAIN,VOMITING Time Seen by Provider: 10/02/18 21:54 Source: Patient Mode of Arrival: Ambulatory Limitations: No limitations - History of Present Illness Initial Comments: 43 yo male presents to ED for evaluation of continued abdominal pain symptoms following evaluation 3 days ago. Patient reports that he was evaluated for a kidney stone 3 days ago, was told he may have "pancreatitis" and was instructed to following up with his GI specialist as scheduled later this week. Patient denies fevers, chills, vomiting, or previous abdominal surgeries. Patient denies health problems at his baseline. MD Complaint: Abdominal pain Onset/Timin -: Days(s) Radiation: R flank Migration to: No migration Severity: Moderate Quality: Sharp, Stabbing Consistency: Constant Improves With: Nothing Worsens With: Nothing Associated Symptoms: Denies other symptoms - Related Data Home Medications Medication Instructions Recorded Confirmed Last Taken Promethazine HCl [Phenergan] 25 mg PO DAILY 10/02/18 10/02/18 Unknown Previous Rx's Medication Instructions Recorded Promethazine HCl [Phenergan] 25 mg PO Q8H PRN #15 tablet 10/02/18 Allergies Allergy/AdvReac Type Severity Reaction Status Date / Time Penicillins Allergy SWELLING Verified 05/31/18 00:29 OF THE FACE Sulfa (Sulfonamide Allergy PT UNSURE Verified 05/31/18 00:29 Antibiotics) OF REACTION ondansetron [From Zofran] AdvReac NAUSEA Verified 09/29/18 05:25 Review of Systems Constitutional: Denies: Chills, Fever, Malaise, Night sweats Eyes: Denies: Eye discharge, Eye pain ENT: Denies: Congestion, Ear pain, Epistaxis Respiratory: Denies: Cough, Dyspnea Cardiovascular: Denies: Chest pain, Dyspnea on exertion Endocrine: Denies: Fatigue, Heat or cold intolerance Gastrointestinal: Reports: Abdominal pain, Nausea. Denies: Vomiting Genitourinary: Denies: Incontinence, Retention Musculoskeletal: Reports: Back pain. Denies: Arthralgia, Gout, Joint swelling Skin: Denies: Bruising, Change in color Neurological: Denies: Abnormal gait, Confusion, Headache, Seizure Psychiatric: Denies: Anxiety Hematological/Lymphatic: Denies: Anemia, Blood Clots Past Medical History - SOCIAL HISTORY Smoking Status: Former smoker Drug Use: None - RESPIRATORY Hx Respiratory Disorders: No - CARDIOVASCULAR Hx Cardio Disorders: No - NEURO Hx Neuro Disorders: No - GI Hx GI Disorders: No - Hx Genitourinary Disorders: Yes Hx Kidney Stones: Yes - ENDOCRINE Hx Endocrine Disorders: No - MUSCULOSKELETAL Hx Musculoskeletal Disorders: No - PSYCH Hx Psych Problems: Yes Hx Anxiety: Yes - HEMATOLOGY/ONCOLOGY Hx Hematology/Oncology Disorders: Yes 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 negative: Conjunctival injection, Periorbital swelling, Periorbital tenderness, Scleral icterus - ENT Ear exam: negative: Auricular hematoma, Auricular trauma Nasal Exam: negative: Active bleeding, Discharge, Dried blood, Foreign body Mouth exam: negative: Drooling, Laceration, Muffled voice, Tongue elevation - Neck Neck exam: Normal inspection. negative: Meningismus, Tenderness - Respiratory Respiratory exam: Normal lung sounds bilaterally. negative: Rales, Respiratory distress, Rhonchi, Stridor - Cardiovascular Cardiovascular Exam: Regular rate, Normal rhythm, Normal heart sounds - GI/Abdominal GI/Abdominal exam: Soft, Other (Abdominal examination is non-tender, no pain to the RLQ/RUG on examination. ). negative: Rebound, Rigid, Tenderness - Rectal Rectal exam: Deferred - exam: Deferred - Extremities Extremities exam: Normal inspection. negative: Calf tenderness, Pedal edema, Tenderness - Neurological Neurological exam: Alert, Normal gait, Oriented X3 - Psychiatric Psychiatric exam: Normal affect, Normal mood - Skin Skin exam: Normal color. negative: Abrasion Type of lesion: negative: abrasion Course Vital Signs 10/02/18 21:57 Temperature 97.5 F L Pulse Rate [ 103 H Pulse Ox Probe] Respiratory 20 Rate Blood Pressure 117/83 [Left Arm] Pulse Ox 95 - Reevaluation(s) Reevaluation #1: 10/02/18 21:59 Previous records were reviewed: Patient has been to the ED 7 times 14 months for similar symptoms, (1) diagnosis for obstructing ureteral stone (08/21). Patient has undergone (3) CT Abdomen/Pelvis studies (03/03/18, 05/31/18, 09/29/17) , all unremarkable for an acute process. Patient reports recent EGD, diagnosed with Soria's esophagitis. Patient appears very comfortable on examination, no pain with palpation of the abdomen, no clinical evidence for a surgical process on examination. Will administer Toradol, obtain laboratory studies and UA, and re-evaluate. Reevaluation #2: 10/02/18 22:34 Laboratory studies were reviewed and are grossly unremarkable for an acute process. UA reviewed: 7-10 RBCs, otherwise normal. Patient was updated on all results, repeat abdominal examination continues to demonstrate a benign abdomen without pain, guarding, or peritoneal signs. Laboratory studies again fail to demonstrate an acute process, and 7-10 RBCs does not appear c/w kidney stone given recent negative CT and continues symptoms since his recent evaluation. Patient appears stable for discharge with Phenergan at this time. Patient is in agreement with the plan of care as discussed. Medical Decision Making - Lab Data Result diagrams: 10/02/18 22:11 10/02/18 22:11 Disposition Disposition: Discharge Clinical Impression: Flank pain, acute Disposition: Home, Self-Care Condition: (2) Stable Instructions: Chronic Abdominal Pain (ED) Additional Instructions: Return to ED if your symptoms worsen or if you have any concerns. Phenergan as directed. Follow-up with your family doctor in 1-3 days as directed. Prescriptions: Promethazine HCl [Phenergan] 25 mg PO Q8H PRN #15 tablet PRN Reason: Nausea/Vomiting Time of Disposition: 22:43 Quality - Quality Measures Quality Measures: N/A - Blood Pressure Screening Does Patient Have Any of the Following: No Blood Pressure Classification: Pre-Hypertensive BP Reading Systolic Measurement: 117 Diastolic Measurement: 83 Screening for High Blood Pressure: < Pre-Hypertensive BP, F/U Documented > [ G8950] Pre-Hypertensive Follow-up Interventions: Referral to alternative/primary care provider.
[2018-10-02] MEDS ORDERED: KETOROLAC 30 MG/ML VIAL IVP ONE (22:05)
[2018-10-02 22:13] LABS: URINE APPEARANCE CLEAR; URINE BILIRUBIN NEGATIVE (NEGATIVE); URINE BLOOD MODERATE (NEGATIVE); URINE COLOR YELLOW; URINE GLUCOSE (UA) NEGATIVE (NEGATIVE); URINE KETONE NEGATIVE (NEGATIVE); URINE LEUKOCYTE ESTERASE NEGATIVE (NEGATIVE); URINE NITRITE NEGATIVE (NEGATIVE); URINE PROTEIN NEGATIVE (NEGATIVE); URINE UROBILINOGEN 0.2 E.U./dL (0.20 - 1.00)
[2018-10-02 22:16] LABS: URINE BACTERIA NONE SEEN; URINE EPITHELIAL CELLS 0 - 2 (FEW); URINE WBC 0 - 2 (0-2/hpf)
[2018-10-02 22:17] LABS: BASO % 0.6 % (0-6); EOS % 7.6 % (0-6); GRAN % 45.5 % (47-80); HEMATOCRIT 46.8 % (42.0-52.0); HEMOGLOBIN 15.8 gm/dl (14.0-18.0); LYMPH % 37.9 % (16-45); MEAN CELL VOLUME 86.3 fl (81-97); MEAN CORPUSCULAR HEMOGLOBIN 29.2 pg (27-33); MEAN CORPUSCULAR HGB CONC 33.8 g/dl (32-36); MEAN PLATELET VOLUME 9.3 fl (7.4-10.4); MONO % 8.4 % (0-9); PLATELET COUNT 241 K/uL (130-400); RED BLOOD COUNT 5.42 M/uL (4.40-5.70); RED CELL DISTRIBUTION WIDTH 14.5 % (11.5-14.5); WHITE BLOOD COUNT W/O DIFF 6.8 K/uL (4.2-12.2)
[2018-10-02 22:26] LABS: BLOOD UREA NITROGEN 12 mg/dL (6-20); EST GLOMERULAR FILTRATION RATE > 60 mL/min
[2018-10-02 22:27] LABS: LIPASE 82 U/L (13-60); TOTAL PROTEIN 7.7 g/dL (6.6-8.7)
[2018-10-02 22:29] LABS: GLUCOSE,RANDOM 111 mg/dL (74-109)
[2018-10-02 22:31] LABS: ALB/GLOB RATIO 1.5 (1.1-1.8); ALBUMIN 4.6 g/dL (4.0-5.0); ALT/SGPT 7 U/L (<41); AST/SGOT 11 U/L (10.0-50.0)
[2018-10-02 22:32] LABS: ALKALINE PHOSPHATASE 64 U/L (55-149)
[2018-10-02] MEDS ORDERED: PROMETHAZINE HCL 25 MG TABLET PO ONE (22:43)
== END 2018-10-02 23:05 | disposition home or self-care (01) ==
LOC: ER 21:53
DX: R10.31 Right lower quadrant pain (principal); R11.11 Vomiting without nausea; Z87.891 Personal history of nicotine dependence; Z87.442 Personal history of urinary calculi
CPT/HCPCS: 80053; 81001; 83690; 85025; 96374; 99284; J1885; Q0170

== ENCOUNTER 2018-12-13 17:35 | Emergency (ER) | payer MEDICAID ==
[2018-12-13] MEDS ORDERED: SODIUM CHLORIDE 0.9% 500 ML IV ONE (17:45)
[2018-12-13] MEDS ORDERED: PROMETHAZINE HCL 12.5 MG in 0.9 % SODIUM CHLORIDE 100ML 100 ML IVPB ONE (17:48)
[2018-12-13] MEDS ORDERED: KETOROLAC 30 MG/ML VIAL IVP ONE (17:49)
--- NOTE | 2018-12-13 17:56 | Emergency Department Record ---
History of Present Illness - General Chief Complaint: Abdominal Pain Stated Complaint: RT SIDE ABDOMINAL PAIN,VOMITING,NAUSEA,DIARRHEA Time Seen by Provider: 12/13/18 17:38 Source: Patient Mode of Arrival: Ambulatory Limitations: No limitations - History of Present Illness Initial Comments: The patient is here due to a one hour hx of AP. The pain is sharp and stabbing and located in the RLQ. The patient has had nausea, vomiting, and diarrhea with it. The patient has a long hx of similar problems and is frequently in the ER for the same problem. He has had neg Abd CT's on 03/03/18, 05/31/18, and 09/29/18. The patient denies any abdominal surgeries but has been diagnosed with Fawad's Esophagus. MD Complaint: Abdominal pain Onset/Timin -: Hour(s) Location: RLQ Radiation: None Severity: Moderate Severity scale (1-10): 7 Quality: Sharp, Stabbing Consistency: Intermittent Improves With: Nothing Worsens With: Nothing Associated Symptoms: Diarrhea, Vomiting - Related Data Previous Rx's Medication Instructions Recorded Promethazine HCl [Phenergan] 25 mg PO Q8H PRN #15 tablet 10/02/18 Allergies Allergy/AdvReac Type Severity Reaction Status Date / Time Penicillins Allergy SWELLING Verified 12/13/18 17:43 OF THE FACE Sulfa (Sulfonamide Allergy PT UNSURE Verified 12/13/18 17:43 Antibiotics) OF REACTION ondansetron [From Zofran] AdvReac NAUSEA Verified 12/13/18 17:43 Travel Screening - Travel/Exposure Within Last 30 Days Have you traveled within the last 30 days?: No - Travel/Exposure Within Last Year Have you traveled outside the [place] in the last year?: No - Additonal Travel Details Have you been exposed to anyone with a communicable illness?: No - Travel Symptoms Symptom Screening: None Review of Systems Constitutional: Denies: Chills, Fever Eyes: Denies: Eye discharge ENT: Denies: Congestion Respiratory: Denies: Cough, Dyspnea Past Medical History - SOCIAL HISTORY Smoking Status: Current every day smoker Alcohol Use: None Drug Use: None - RESPIRATORY Hx Respiratory Disorders: No - CARDIOVASCULAR Hx Cardio Disorders: No - NEURO Hx Neuro Disorders: No - GI Hx GI Disorders: No - Hx Genitourinary Disorders: Yes Hx Kidney Stones: Yes - ENDOCRINE Hx Endocrine Disorders: No - MUSCULOSKELETAL Hx Musculoskeletal Disorders: No - PSYCH Hx Psych Problems: Yes Hx Anxiety: Yes - HEMATOLOGY/ONCOLOGY Hx Hematology/Oncology Disorders: Yes 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 negative: Tenderness - Respiratory Respiratory exam: Normal lung sounds bilaterally. negative: Respiratory distress - Cardiovascular Cardiovascular Exam: Regular rate, Normal rhythm, Normal heart sounds - GI/Abdominal GI/Abdominal exam: Soft, Normal bowel sounds, Tenderness (There is mild RLQ tenderness.). negative: Rebound, Rigid - Extremities Extremities exam: Normal inspection, Full ROM, Normal capillary refill. negative: Tenderness - Neurological Neurological exam: Alert. negative: Motor sensory deficit Course Vital Signs 12/13/18 17:44 Temperature 97.7 F Pulse Rate 95 H Respiratory 18 Rate Blood Pressure 128/90 Pulse Ox 95 - Reevaluation(s) Reevaluation #1: The patient is doing a lot better at this time. His pain and nausea are resolved. I did review the patient's old records and his Lipase is always mildly elevated and he usually has a very small amount of blood in his urine. Presently the pain is resolved and on exam the abdomen is very soft and nontender. I strongly doubt any serious pathology due to the fact the patient has had [address]'s for this exact issue in the last 9 months. We will have the patient see his PCP next week for recheck if needed and he is to return to the ER for any worsening symptoms. 12/13/18 18:48 Medical Decision Making - Data Complexity MDM Data: Labs Ordered and/or Reviewed - Lab Data Result diagrams: 12/13/18 18:00 12/13/18 18:00 Disposition Disposition: Discharge Clinical Impression: Flank pain, acute Disposition: Home, Self-Care Condition: (2) Stable Instructions: Abdominal Pain (ED) Additional Instructions: Please use Tylenol or Motrin for pain and drink plenty of fluids. Please return to the ER in the morning if not better and sooner for any worsening symptoms. Please see your family doctor regarding the small amount of blood in your urine. Forms: Patient Portal Access Time of Disposition: 18:51 Quality - Quality Measures Quality Measures: N/A - Blood Pressure Screening View Details: Yes Does Patient Have Any of the Following: No Blood Pressure Classification: Hypertensive Reading Systolic Measurement: 128 Diastolic Measurement: 90 Screening for High Blood Pressure: < First Hypertensive BP, F/U Documented > [ G8950] First Hypertensive Follow-up Interventions: Referral to alternative/primary care provider.
[2018-12-13 18:03] LABS: BASO % 0.5 % (0-6); EOS % 10.6 % (0-6); GRAN % 50.7 % (47-80); HEMATOCRIT 47.3 % (42.0-52.0); LYMPH % 29.1 % (16-45); MEAN CELL VOLUME 87.4 fl (81-97); MEAN CORPUSCULAR HEMOGLOBIN 29.6 pg (27-33); MEAN CORPUSCULAR HGB CONC 33.8 g/dl (32-36); MEAN PLATELET VOLUME 8.9 fl (7.4-10.4); MONO % 9.1 % (0-9); PLATELET COUNT 224 K/uL (130-400); RED BLOOD COUNT 5.41 M/uL (4.40-5.70); RED CELL DISTRIBUTION WIDTH 14.5 % (11.5-14.5); WHITE BLOOD COUNT W/O DIFF 8.7 K/uL (4.2-12.2)
[2018-12-13 18:14] LABS: BLOOD UREA NITROGEN 8 mg/dL (6-20); CREATININE 0.9 mg/dL (0.7-1.2); EST GLOMERULAR FILTRATION RATE > 60 mL/min; LIPASE 64 U/L (13-60); TOTAL PROTEIN 7.4 g/dL (6.6-8.7)
[2018-12-13 18:16] LABS: GLUCOSE,RANDOM 100 mg/dL (74-109)
[2018-12-13 18:19] LABS: ALBUMIN 4.4 g/dL (4.0-5.0); ALKALINE PHOSPHATASE 66 U/L (40-129); ALT/SGPT 13 U/L (<41); AST/SGOT 15 U/L (10.0-50.0)
[2018-12-13 18:20] LABS: BILIRUBIN,DIRECT < 0.2 mg/dL (0-0.3)
[2018-12-13 18:20] LABS: URINE APPEARANCE CLEAR; URINE BILIRUBIN NEGATIVE (NEGATIVE); URINE BLOOD MODERATE (NEGATIVE); URINE COLOR YELLOW; URINE GLUCOSE (UA) NEGATIVE (NEGATIVE); URINE KETONE TRACE (NEGATIVE); URINE LEUKOCYTE ESTERASE NEGATIVE (NEGATIVE); URINE NITRITE NEGATIVE (NEGATIVE); URINE PROTEIN NEGATIVE (NEGATIVE); URINE UROBILINOGEN 0.2 E.U./dL (0.20 - 1.00)
[2018-12-13 18:27] LABS: URINE EPITHELIAL CELLS NONE SEEN (FEW); URINE MUCUS LIGHT; URINE WBC NONE SEEN (0-2/hpf)
== END 2018-12-13 19:03 | disposition home or self-care (01) ==
LOC: ER 17:35
DX: R10.31 Right lower quadrant pain (principal); R19.7 Diarrhea, unspecified; R11.2 Nausea with vomiting, unspecified; R74.8 Abnormal levels of other serum enzymes; F17.210 Nicotine dependence, cigarettes, uncomplicated
CPT/HCPCS: 99284 ×2; 96365; 96375; 96361; 83690; 85025; 80076; 80048; 81001; J1885; J2550

== ENCOUNTER 2019-02-23 06:21 | Emergency (ER) | payer MEDICAID ==
[2019-02-23 06:41] LABS: ABSOLUTE NEUTROPHIL COUNT 2.72; HEMATOCRIT 46.6 % (42.0-52.0); HEMOGLOBIN 15.8 gm/dl (14.0-18.0); MEAN CELL VOLUME 86.9 fl (81-97); MEAN CORPUSCULAR HEMOGLOBIN 29.5 pg (27-33); MEAN CORPUSCULAR HGB CONC 33.9 g/dl (32-36); MEAN PLATELET VOLUME 9.1 fl (7.4-10.4); PLATELET COUNT 247 K/uL (130-400); RED BLOOD COUNT 5.36 M/uL (4.40-5.70); WHITE BLOOD COUNT W/O DIFF 7.2 K/uL (4.2-12.2)
[2019-02-23] MEDS ORDERED: KETOROLAC 30 MG/ML VIAL IVP ONE (06:43)
[2019-02-23 06:45] LABS: URINE APPEARANCE CLEAR; URINE BILIRUBIN MODERATE (NEGATIVE); URINE BLOOD MODERATE (NEGATIVE); URINE COLOR YELLOW; URINE GLUCOSE (UA) NEGATIVE (NEGATIVE); URINE KETONE TRACE (NEGATIVE); URINE LEUKOCYTE ESTERASE NEGATIVE (NEGATIVE); URINE NITRITE NEGATIVE (NEGATIVE); URINE PROTEIN TRACE (NEGATIVE)
[2019-02-23] MEDS ORDERED: 0.9 % SODIUM CHLORIDE 1000ML 1,000 ML IV SCH (06:45)
--- NOTE | 2019-02-23 06:49 | Emergency Department Record ---
History of Present Illness - General Chief Complaint: Abdominal Pain Stated Complaint: ABDOMINAL PAIN Time Seen by Provider: 02/23/19 06:42 Source: Patient Mode of Arrival: Ambulatory Limitations: No limitations - History of Present Illness Initial Comments: 43 yo male presents to ED for evaluation of right sided flank and abdominal pain symptoms that began this morning. Patient denies fevers, chills, or urinary symtpoms. 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 Patient denies health problems at his baseline, reports that he is concerned about possible kidney stones. MD Complaint: Abdominal pain, Flank pain Onset/Timin -: Hour(s) Location: LLQ, RLQ Radiation: Back Severity scale (1-10): 10 Quality: Stabbing Consistency: Constant Improves With: Nothing Worsens With: Movement Associated Symptoms: Diarrhea, Nausea, Vomiting - Related Data Previous Rx's Medication Instructions Recorded Promethazine HCl [Phenergan] 25 mg PO Q8H PRN #15 tablet 10/02/18 Allergies Allergy/AdvReac Type Severity Reaction Status Date / Time Penicillins Allergy SWELLING Verified 12/13/18 17:43 OF THE FACE Sulfa (Sulfonamide Allergy PT UNSURE Verified 12/13/18 17:43 Antibiotics) OF REACTION ondansetron [From Zofran] AdvReac NAUSEA Verified 12/13/18 17:43 Travel Screening - Travel/Exposure Within Last 30 Days Have you traveled within the last 30 days?: No - Travel Symptoms Symptom Screening: None Review of Systems Constitutional: Denies: Chills, Fever, Malaise, Night sweats Eyes: Denies: Eye discharge, Eye pain ENT: Denies: Congestion, Ear pain, Epistaxis Respiratory: Denies: Cough, Dyspnea Cardiovascular: Denies: Chest pain, Dyspnea on exertion Endocrine: Denies: Fatigue, Heat or cold intolerance Gastrointestinal: Reports: Abdominal pain. Denies: Nausea, Vomiting Genitourinary: Denies: Testicular pain, Testicular mass Musculoskeletal: Reports: Back pain. Denies: Arthralgia Skin: Denies: Bruising, Change in color Neurological: Denies: Abnormal gait, Confusion, Headache, Seizure Psychiatric: Denies: Anxiety Hematological/Lymphatic: Denies: Anemia, Blood Clots Past Medical History - SOCIAL HISTORY Smoking Status: Current every day smoker - RESPIRATORY Hx Respiratory Disorders: No - CARDIOVASCULAR Hx Cardio Disorders: No - NEURO Hx Neuro Disorders: No - GI Hx GI Disorders: Yes Hx Abdominal Pain: Yes - Hx Genitourinary Disorders: Yes Hx Kidney Stones: Yes - ENDOCRINE Hx Endocrine Disorders: No - MUSCULOSKELETAL Hx Musculoskeletal Disorders: No - PSYCH Hx Psych Problems: Yes Hx Anxiety: Yes - HEMATOLOGY/ONCOLOGY Hx Hematology/Oncology Disorders: Yes 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 negative: Conjunctival injection, Periorbital swelling, Periorbital tenderness, Scleral icterus - ENT Ear exam: negative: Auricular hematoma, Auricular trauma Nasal Exam: negative: Active bleeding, Discharge, Dried blood, Foreign body Mouth exam: negative: Drooling, Laceration, Muffled voice, Tongue elevation - Neck Neck exam: Normal inspection. negative: Meningismus, Tenderness - Respiratory Respiratory exam: Normal lung sounds bilaterally. negative: Rales, Respiratory distress, Rhonchi, Stridor - Cardiovascular Cardiovascular Exam: Regular rate, Normal rhythm, Normal heart sounds - GI/Abdominal GI/Abdominal exam: Soft, Tenderness (TTP RLQ/Right flank on examination, no rebound or guarding symptoms are present.). negative: Rebound, Rigid - Rectal Rectal exam: Deferred - exam: Deferred - Extremities Extremities exam: Normal inspection. negative: Pedal edema, Tenderness - Back Back exam: Reports: CVA tenderness (R). Denies: CVA tenderness (L) - Neurological Neurological exam: Alert, Normal gait, Oriented X3 - Psychiatric Psychiatric exam: Normal affect, Normal mood - Skin Skin exam: Normal color. negative: Abrasion Type of lesion: negative: abrasion Course Vital Signs 02/23/19 06:26 Temperature 97.9 F Pulse Rate 105 H Respiratory 16 Rate Blood Pressure 120/84 Pulse Ox 95 - Reevaluation(s) Reevaluation #1: 02/23/19 06:48 Patient was seen and examined. Case was discussed with oncoming provider, will assume care and disposition at this time. Medical Decision Making - Lab Data Result diagrams: 02/23/19 06:32 02/23/19 06:32 Lab Results 02/23/19 Range/Units 06:32 WBC 7.2 (4.2-12.2) K/uL RBC 5.36 (4.40-5.70) M/uL Hgb 15.8 (14.0-18.0) gm/dl Hct 46.6 (42.0-52.0) % MCV 86.9 (81-97) fl MCH 29.5 (27-33) pg MCHC 33.9 (32-36) g/dl RDW 14.0 (11.5-14.5) % Plt Count 247 (130-400) K/uL MPV 9.1 (7.4-10.4) fl Neutrophils % 40.0 L (47-80) % Band Neutrophils % 0.0 (0-5) % Eosinophils % Not Reportable Basophils % Not Reportable Absolute Neutrophils 2.72 Lymphocytes 43.0 (16-45) % Monocytes 7.0 (0-9) % Basophils 0.0 (0-6) % Eosinophil Count 10.0 H (0-6) % Disposition Clinical Impression: Abdominal pain Qualifiers: Abdominal location: right lower quadrant Qualified Code(s): R10.31 - Right lower quadrant pain Forms: Patient Portal Access Quality - Quality Measures Quality Measures: N/A - Blood Pressure Screening Does Patient Have Any of the Following: No Blood Pressure Classification: Pre-Hypertensive BP Reading Systolic Measurement: 120 Diastolic Measurement: 84 Screening for High Blood Pressure: < Pre-Hypertensive BP, F/U Documented > [G8950] Pre-Hypertensive Follow-up Interventions: Referral to alternative/primary care provider.
[2019-02-23 06:50] LABS: BLOOD UREA NITROGEN 13 mg/dL (6-20); EST GLOMERULAR FILTRATION RATE > 60 mL/min
[2019-02-23 06:51] LABS: TOTAL PROTEIN 7.1 g/dL (6.6-8.7)
[2019-02-23 06:52] LABS: URINE BACTERIA NONE SEEN; URINE EPITHELIAL CELLS 0 - 2 (FEW); URINE WBC 0 - 2 (0-2/hpf)
[2019-02-23 06:53] LABS: GLUCOSE,RANDOM 110 mg/dL (74-109)
[2019-02-23] MEDS ORDERED: PROMETHAZINE HCL 12.5 MG in 0.9 % SODIUM CHLORIDE 100ML 100 ML IVPB ONE (06:54)
[2019-02-23 06:55] LABS: ALB/GLOB RATIO 1.4 (1.1-1.8); ALBUMIN 4.1 g/dL (4.0-5.0); ALT/SGPT 13 U/L (<41); AST/SGOT 19 U/L (10.0-50.0)
[2019-02-23 06:56] LABS: ALKALINE PHOSPHATASE 61 U/L (40-129)
[2019-02-23 07:01] LABS: LIPASE 81 U/L (13-60)
--- NOTE | 2019-02-23 07:46 | Emergency Department Record ---
History of Present Illness - General Chief Complaint: Abdominal Pain Stated Complaint: ABDOMINAL PAIN Time Seen by Provider: 02/23/19 06:42 Source: Patient Mode of Arrival: Ambulatory Limitations: No limitations - History of Present Illness MD Complaint: Abdominal pain, Flank pain Onset/Timin -: Hour(s) Location: LLQ, RLQ Radiation: Back Severity scale (1-10): 10 Quality: Stabbing Consistency: Constant Improves With: Nothing Worsens With: Movement Associated Symptoms: Diarrhea, Nausea, Vomiting - Related Data Previous Rx's Medication Instructions Recorded Promethazine HCl [Phenergan] 25 mg PO Q8H PRN #15 tablet 10/02/18 Allergies Allergy/AdvReac Type Severity Reaction Status Date / Time Penicillins Allergy SWELLING Verified 12/13/18 17:43 OF THE FACE Sulfa (Sulfonamide Allergy PT UNSURE Verified 12/13/18 17:43 Antibiotics) OF REACTION ondansetron [From Zofran] AdvReac NAUSEA Verified 12/13/18 17:43 Travel Screening - Travel/Exposure Within Last 30 Days Have you traveled within the last 30 days?: No - Travel Symptoms Symptom Screening: None Review of Systems Constitutional: Denies: Chills, Fever, Malaise, Night sweats Eyes: Denies: Eye discharge, Eye pain ENT: Denies: Congestion, Ear pain, Epistaxis Respiratory: Denies: Cough, Dyspnea Cardiovascular: Denies: Chest pain, Dyspnea on exertion Endocrine: Denies: Fatigue, Heat or cold intolerance Gastrointestinal: Reports: Abdominal pain. Denies: Nausea, Vomiting Genitourinary: Denies: Testicular pain, Testicular mass Musculoskeletal: Reports: Back pain. Denies: Arthralgia Skin: Denies: Bruising, Change in color Neurological: Denies: Abnormal gait, Confusion, Headache, Seizure Psychiatric: Denies: Anxiety Hematological/Lymphatic: Denies: Anemia, Blood Clots Past Medical History - SOCIAL HISTORY Smoking Status: Current every day smoker - RESPIRATORY Hx Respiratory Disorders: No - CARDIOVASCULAR Hx Cardio Disorders: No - NEURO Hx Neuro Disorders: No - GI Hx GI Disorders: Yes Hx Abdominal Pain: Yes - Hx Genitourinary Disorders: Yes Hx Kidney Stones: Yes - ENDOCRINE Hx Endocrine Disorders: No - MUSCULOSKELETAL Hx Musculoskeletal Disorders: No - PSYCH Hx Psych Problems: Yes Hx Anxiety: Yes - HEMATOLOGY/ONCOLOGY Hx Hematology/Oncology Disorders: Yes 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 is neg. reexam of abd shows no ruq tenderness Medical Decision Making - Lab Data Result diagrams: 02/23/19 06:32 02/23/19 06:32 Lab Results 02/23/19 02/23/19 02/23/19 Range/Units 06:32 06:32 06:32 WBC 7.2 (4.2-12.2) K/uL Corrected WBC RBC 5.36 (4.40-5.70) M/uL Hgb 15.8 (14.0-18.0) gm/dl Hct 46.6 (42.0-52.0) % MCV 86.9 (81-97) fl MCH 29.5 (27-33) pg MCHC 33.9 (32-36) g/dl RDW 14.0 (11.5-14.5) % Plt Count 247 (130-400) K/uL MPV 9.1 (7.4-10.4) fl Gran % Neutrophils % 40.0 L (47-80) % Band Neutrophils % 0.0 (0-5) % Lymphocytes % Monocytes % Eosinophils % Not Reportable Basophils % Not Reportable Absolute Neutrophils 2.72 Lymphocytes 43.0 (16-45) % Monocytes 7.0 (0-9) % Basophils 0.0 (0-6) % Eosinophil Count 10.0 H (0-6) % Sodium 138 (136-145) mmol/L Potassium 4.3 (3.4-4.5) mmol/L Chloride 104 (98-107) mmol/L Carbon Dioxide 23.0 (22-29) mmol/L Anion Gap 11.0 (7-16) BUN 13 (6-20) mg/dL Creatinine 1.0 (0.7-1.2) mg/dL Estimated GFR > 60 mL/min Random Glucose 110 H (74-109) mg/dL Calcium 9.0 (8.6-10.0) mg/dL Total Bilirubin 0.40 (0.2-1.0) mg/dL AST 19 (10.0-50.0) U/L ALT 13 (<41) U/L Alkaline Phosphatase 61 (40-129) U/L Total Protein 7.1 (6.6-8.7) g/dL Albumin 4.1 (4.0-5.0) g/dL Globulin 3.0 (1.4-4.8) gm/dL Albumin/Globulin Ratio 1.4 (1.1-1.8) Lipase 81 H (13-60) U/L Urine Color Yellow Urine Appearance Clear Urine pH 5.5 (5.0-8.0) Ur Specific [place] >= 1.030 (1.002-1.030) Urine Protein Trace H (NEGATIVE) Urine Glucose (UA) Negative (NEGATIVE) Urine Ketones Trace H (NEGATIVE) Urine Blood Moderate (NEGATIVE) Urine Nitrite Negative (NEGATIVE) Urine Bilirubin Moderate H (NEGATIVE) Urine Urobilinogen 1.0 (0.20 - 1.00) E.U./dL Ur Leukocyte Esterase Negative (NEGATIVE) Urine RBC 3 - 6 (NONE SEEN) Urine WBC 0 - 2 (0-2/hpf) Ur Epithelial Cells 0 - 2 (FEW) Urine Bacteria None seen 02/23/19 02/23/19 Range/Units 06:43 06:43 WBC Cancelled (4.2-12.2) K/uL Corrected WBC Cancelled RBC Cancelled (4.40-5.70) M/uL Hgb Cancelled (14.0-18.0) gm/dl Hct Cancelled (42.0-52.0) % MCV Cancelled (81-97) fl MCH Cancelled (27-33) pg MCHC Cancelled (32-36) g/dl RDW Cancelled (11.5-14.5) % Plt Count Cancelled (130-400) K/uL MPV Cancelled (7.4-10.4) fl Gran % Cancelled Neutrophils % (47-80) % Band Neutrophils % (0-5) % Lymphocytes % Cancelled Monocytes % Cancelled Eosinophils % Cancelled Basophils % Cancelled Absolute Neutrophils Cancelled Lymphocytes (16-45) % Monocytes (0-9) % Basophils (0-6) % Eosinophil Count (0-6) % Sodium (136-145) mmol/L Potassium (3.4-4.5) mmol/L Chloride (98-107) mmol/L Carbon Dioxide (22-29) mmol/L Anion Gap (7-16) BUN (6-20) mg/dL Creatinine (0.7-1.2) mg/dL Estimated GFR mL/min Random Glucose (74-109) mg/dL Calcium (8.6-10.0) mg/dL Total Bilirubin (0.2-1.0) mg/dL AST (10.0-50.0) U/L ALT (<41) U/L Alkaline Phosphatase (40-129) U/L Total Protein (6.6-8.7) g/dL Albumin (4.0-5.0) g/dL Globulin (1.4-4.8) gm/dL Albumin/Globulin Ratio (1.1-1.8) Lipase Cancelled (13-60) U/L Urine Color Urine Appearance Urine pH (5.0-8.0) Ur Specific [place] (1.002-1.030) Urine Protein (NEGATIVE) Urine Glucose (UA) (NEGATIVE) Urine Ketones (NEGATIVE) Urine Blood (NEGATIVE) Urine Nitrite (NEGATIVE) Urine Bilirubin (NEGATIVE) Urine Urobilinogen (0.20 - 1.00) E.U./dL Ur Leukocyte Esterase (NEGATIVE) Urine RBC (NONE SEEN) Urine WBC (0-2/hpf) Ur Epithelial Cells (FEW) Urine Bacteria Disposition Disposition: Discharge Clinical Impression: Abdominal pain Qualifiers: Abdominal location: right lower quadrant Qualified Code(s): R10.31 - Right lower quadrant pain Disposition: Home, Self-Care Condition: (1) Good Instructions: Abdominal Pain (ED) Additional Instructions: follow up with family doctor. return sooner if worse. Forms: Patient Portal Access Quality - Quality Measures Quality Measures: N/A - Blood Pressure Screening Does Patient Have Any of the Following: No Blood Pressure Classification: Pre-Hypertensive BP Reading Systolic Measurement: 120 Diastolic Measurement: 84 Screening for High Blood Pressure: < Pre-Hypertensive BP, F/U Documented > [G8950] Pre-Hypertensive Follow-up Interventions: Follow-up with rescreen every year.
--- NOTE | 2019-02-25 12:31 | CT SCAN REPORT ---
DATE: 02/23/2019 at 0706 a.m. EXAM: CT SCAN OF THE ABDOMEN AND PELVIS WITHOUT CONTRAST. HISTORY: LOWER ABDOMINAL PAIN FOR THE PAST THREE HOURS. PREVIOUS HISTORY OF KIDNEY STONES. TECHNIQUE: Standard CT imaging of the abdomen and pelvis was performed without contrast. Additional coronal and sagittal reformatted images were also performed. COMPARISON: 09/29/2018. FINDINGS: The lung bases are clear. There is mild wall thickening of the distal esophagus which appears unchanged from the previous examination. The liver, gallbladder, biliary tree, pancreas, spleen, and adrenal glands are normal. The stomach and epigastrium appear normal. The kidneys and ureters are unremarkable. There is no urinary tract calculus or obstructive uropathy. The aorta is normal in caliber. There is no retroperitoneal lymphadenopathy. The large and small bowel loops, including the appendix, are normal. There are no focal inflammatory changes. There is no pneumoperitoneum or ascites. The urinary bladder and prostate gland appear intact. There is a tiny fat- containing umbilical hernia. There are no acute osseous abnormalities. IMPRESSION: 1. NO ACUTE INTRA-ABDOMINAL PATHOLOGY. THERE IS NO URINARY TRACT CALCULUS OR OBSTRUCTIVE UROPATHY. 2. NORMAL APPENDIX. Job Number: [id number] [facility]
== END 2019-02-23 07:55 | disposition home or self-care (01) ==
LOC: ER 06:21
DX: R10.31 Right lower quadrant pain (principal); R19.7 Diarrhea, unspecified; R11.2 Nausea with vomiting, unspecified; F17.210 Nicotine dependence, cigarettes, uncomplicated; Z87.442 Personal history of urinary calculi
CPT/HCPCS: 74176; 80053; 81001; 83690; 85027; 96361; 96365; 96375; 96376; 99284; J1885; J2550; J7030

== ENCOUNTER 2019-03-19 01:53 | Emergency (ER) | payer MEDICAID ==
[2019-03-19] MEDS ORDERED: 0.9 % SODIUM CHLORIDE 1,000 ML BAG IV ONE ×2 (02:17→04:23)
[2019-03-19] MEDS ORDERED: KETOROLAC 30 MG/ML VIAL IVP ONE (02:17)
--- NOTE | 2019-03-19 02:17 | Emergency Department Record ---
History of Present Illness - General Chief complaint: Vomiting Stated complaint: VOMITING Time Seen by Provider: 03/19/19 02:08 Source: Patient Mode of Arrival: Ambulatory - History of Present Illness Initial comments: The patient states that he has had right flank pain of varying severity for 2 months. All day today, 03-18-19, he was nauseated, so he took phenergan which he previously was prescribed. He began vomiting around 2200 tonight so came in. He denies fevers, chills, hematuria. History of stones in the past. Patient has seen [facility] who told him he had "Soria's esophagus." He states he used to drink alcohol but quit 3 years ago. MD complaint: Vomiting Onset/Timin -: Hour(s) Description of Vomiting: Food contents Associated Abdominal Pain: No Location: Flank Radiation: R flank Severity: Severe Severity scale (1-10): 8 Consistency: Constant Improves with: None Associated Symptoms: Fever/chills, Nausea/vomiting - Related Data Previous Rx's Medication Instructions Recorded Promethazine HCl [Phenergan] 25 mg PO Q8H PRN #15 tablet 10/02/18 Allergies Allergy/AdvReac Type Severity Reaction Status Date / Time Penicillins Allergy SWELLING Verified 03/19/19 02:11 OF THE FACE Sulfa (Sulfonamide Allergy PT UNSURE Verified 03/19/19 02:11 Antibiotics) OF REACTION ondansetron [From Zofran] AdvReac NAUSEA Verified 03/19/19 02:11 Travel Screening - Travel/Exposure Within Last 30 Days Have you traveled within the last 30 days?: No - Travel Symptoms Symptom Screening: Vomiting, Chills Review of Systems Reviewed: No additional complaints except as noted below Constitutional: Reports: As per HPI. Denies: Chills, Fever, Malaise, Night sweats, Weakness, Weight change Eyes: Reports: As per HPI. Denies: Eye discharge, Eye pain, Photophobia, Vision change ENT: Reports: As per HPI. Denies: Congestion, Dental pain, Ear pain, Epistaxis, Hearing loss, Throat pain Respiratory: Reports: As per HPI. Denies: Cough, Dyspnea, Hemoptysis, Stridor, Wheezes Cardiovascular: Reports: As per HPI. Denies: Arrhythmia, Chest pain, Dyspnea on exertion, Edema, Murmurs, Orthopnea, Palpitations, Paroxysmal nocturnal dyspnea, Rheumatic Fever, Syncope Endocrine: Reports: As per HPI. Denies: Fatigue, Heat or cold intolerance, Polydipsia, Polyuria Gastrointestinal: Reports: As per HPI. Denies: Abdominal pain, Constipation, Diarrhea, Hematemesis, Hematochezia, Melena, Nausea, Vomiting Genitourinary: Reports: As per HPI. Denies: Dysuria, Frequency, Hematuria, Incontinence, Retention, Testicular pain, Testicular mass, Urgency Musculoskeletal: Reports: As per HPI. Denies: Arthralgia, Back pain, Gout, Joint swelling, Myalgia, Neck pain Skin: Reports: As per HPI. Denies: Bruising, Change in color, Change in hair/nails, Lesions, Pruritus, Rash Neurological: Reports: As per HPI. Denies: Abnormal gait, Confusion, Headache, Numbness, Paresthesias, Seizure, Tingling, Tremors, Vertigo, Weakness Psychiatric: Reports: As per HPI. Denies: Anxiety, Auditory hallucinations, Depression, Homicidal thoughts, Suicidal thoughts, Visual hallucinations Hematological/Lymphatic: Reports: As per HPI. Denies: Anemia, Blood Clots, Easy bleeding, Easy bruising, Swollen glands Past Medical History - SOCIAL HISTORY Smoking Status: Current every day smoker Alcohol Use: None Drug Use: None - RESPIRATORY Hx Respiratory Disorders: No - CARDIOVASCULAR Hx Cardio Disorders: No - NEURO Hx Neuro Disorders: No - GI Hx GI Disorders: Yes Hx Abdominal Pain: Yes Hx Nausea/Vomiting: Yes Hx Wt Loss/Wt Gain: Yes - Hx Genitourinary Disorders: Yes Hx Kidney Stones: Yes - ENDOCRINE Hx Endocrine Disorders: No - MUSCULOSKELETAL Hx Musculoskeletal Disorders: No - PSYCH Hx Psych Problems: Yes Hx Anxiety: Yes - HEMATOLOGY/ONCOLOGY Hx Hematology/Oncology Disorders: Yes 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 negative: Conjunctival injection, Nystagmus Pupils: Normal accommodation - ENT ENT exam: Normal exam, Mucous membranes moist, Normal external ear exam, Normal orophraynx, TM's normal bilaterally Ear exam: Normal external inspection. negative: External canal tenderness Nasal Exam: Normal inspection. negative: Discharge, Sinus tenderness Mouth exam: Normal external inspection, Tongue normal Teeth exam: Normal inspection. negative: Dental caries Throat exam: Normal inspection. negative: Tonsillar erythema, Tonsillar exudate - Neck Neck exam: Normal inspection, Full ROM. negative: Lymphadenopathy, Meningismus, Tenderness - Respiratory Respiratory exam: Normal lung sounds bilaterally. negative: Respiratory distress - Cardiovascular Cardiovascular Exam: Normal rhythm, Normal heart sounds, Tachycardia - GI/Abdominal GI/Abdominal exam: Soft, Normal bowel sounds. negative: Tenderness - Rectal Rectal exam: Deferred - exam: Deferred - Extremities Extremities exam: Normal inspection, Full ROM, Normal capillary refill. negative: Calf tenderness, Pedal edema, Tenderness - Back Back exam: Reports: Normal inspection, CVA tenderness (R), Full ROM. Denies: CVA tenderness (L), Muscle spasm, Rash noted, Tenderness - Neurological Neurological exam: Alert, CN II-XII intact, Normal gait, Oriented X3, Reflexes normal. negative: Motor sensory deficit - Psychiatric Psychiatric exam: Normal affect, Normal mood - Skin Skin exam: Dry, Intact, Normal color, Warm Course Vital Signs 03/19/19 01:59 Pulse Rate 102 H Respiratory 20 Rate Blood Pressure 122/73 Pulse Ox 97 - Reevaluation(s) Reevaluation #1: Patient has stopped vomiting, but he still feels queasy/nauseated and has not urinated much. Will give second liter NS and phenergan and DC home. He will follow up with GI for this persistent nausea and for a recheck. 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 03/19/19 04:24 03/19/19 04:46 Repeat abdominal exam is nontender. Patient is ready for DC. Medical Decision Making - Management Options MDM Management: No Additional Work-up Planned - Data Complexity MDM Data: Labs Ordered and/or Reviewed, X-Ray Ordered and/or Reviewed (Noncontrast CT Abd/Pelvis: At least one tiny nonostructing left renal calculus. No hydronephrosis. Per [facility].) - Lab Data Result diagrams: 03/19/19 02:40 03/19/19 02:40 Disposition Disposition: Discharge Clinical Impression: Vomiting Qualifiers: Vomiting type: unspecified Vomiting Intractability: non-intractable Nausea presence: with nausea Qualified Code(s): R11.2 - Nausea with vomiting, unspecified Disposition: Home, Self-Care Condition: (1) Good Instructions: Acute Nausea and Vomiting (ED) Additional Instructions: Continue present medications. Clear liquids if nauseated. Follow up with GI "Specialists" in office for further evaluation. Your lipase was elevated this visit; have your GI specialist follow this also. PCP follow up as needed. Quality - Quality Measures Quality Measures: N/A - Blood Pressure Screening Does Patient Have Any of the Following: No Blood Pressure Classification: Pre-Hypertensive BP Reading Systolic Measurement: 122 Diastolic Measurement: 73 Screening for High Blood Pressure: < Normal BP, F/U Not Required > [G8783]
[2019-03-19] MEDS ORDERED: DIPHENHYDRAMINE HCL 50 MG/ML VIAL IVP ONE (02:18)
[2019-03-19 02:44] LABS: ABSOLUTE NEUTROPHIL COUNT 5.21; BASO % 0.6 % (0-6); EOS % 9.3 % (0-6); GRAN % 49.2 % (47-80); HEMATOCRIT 48.7 % (42.0-52.0); HEMOGLOBIN 16.8 gm/dl (14.0-18.0); LYMPH % 33.3 % (16-45); MEAN CORPUSCULAR HGB CONC 34.5 g/dl (32-36); MEAN PLATELET VOLUME 9.7 fl (7.4-10.4); MONO % 7.6 % (0-9); PLATELET COUNT 254 K/uL (130-400); RED CELL DISTRIBUTION WIDTH 14.4 % (11.5-14.5); WHITE BLOOD COUNT W/O DIFF 10.6 K/uL (4.2-12.2)
[2019-03-19 02:55] LABS: CREATININE 1.4 mg/dL (0.7-1.2)
[2019-03-19 02:56] LABS: BILIRUBIN,TOTAL 0.3 mg/dL (0.2-1.0); TOTAL PROTEIN 7.3 g/dL (6.6-8.7)
[2019-03-19 03:01] LABS: ALB/GLOB RATIO 1.5 (1.1-1.8); ALBUMIN 4.4 g/dL (4.0-5.0)
[2019-03-19 03:43] LABS: URINE APPEARANCE CLEAR; URINE BILIRUBIN SMALL (NEGATIVE); URINE BLOOD NEGATIVE (NEGATIVE); URINE GLUCOSE (UA) NEGATIVE (NEGATIVE); URINE KETONE 15 mg/dL (NEGATIVE); URINE LEUKOCYTE ESTERASE NEGATIVE (NEGATIVE); URINE NITRITE NEGATIVE (NEGATIVE)
[2019-03-19 03:44] LABS: URINE COLOR DARK YELLOW; URINE RBC NONE SEEN (NONE SEEN); URINE WBC 0 - 2 (0-2/hpf)
[2019-03-19 03:45] LABS: URINE EPITHELIAL CELLS 0 - 2 (FEW); URINE MUCUS MODERATE
[2019-03-19] MEDS ORDERED: PROMETHAZINE HCL 25 MG/ML VIAL IVP ONE (04:24)
--- NOTE | 2019-03-20 06:54 | CT SCAN REPORT ---
EXAM: CT SCAN OF THE ABDOMEN AND PELVIS WITHOUT CONTRAST HISTORY: RIGHT FLANK PAIN AND VOMITING. LOWER ABDOMINAL PAIN. TECHNIQUE: Standard CT imaging of the abdomen and pelvis was performed without contrast. Additional coronal and sagittal reformatted images were also performed. Comparison: 02/23/19. FINDINGS: The lung bases are clear. The liver, gallbladder, biliary tree, pancreas, spleen, and adrenal glands are normal. A 2 mm nonobstructing stone is present at the upper pole of the left kidney. The kidneys and ureters are otherwise normal. There is no obstructing calculus or hydronephrosis. The aorta is normal in caliber. There is no retroperitoneal lymphadenopathy. The large and small bowel loops including the appendix are normal. There are no focal inflammatory changes. There is no pneumoperitoneum or ascites. The urinary bladder and prostate are normal. There is a tiny fat containing periumbilical hernia. There are no acute osseous abnormalities. IMPRESSION: 1. NO ACUTE INTRAABDOMINAL PATHOLOGY. 2. 2 MM NONOBSTRUCTING STONE WITHIN THE LEFT KIDNEY. JOB NUMBER: [id number] [facility]
== END 2019-03-19 05:14 | disposition home or self-care (01) ==
LOC: ER 01:53
DX: R11.2 Nausea with vomiting, unspecified (principal); R10.9 Unspecified abdominal pain; F17.210 Nicotine dependence, cigarettes, uncomplicated; Z87.442 Personal history of urinary calculi
CPT/HCPCS: 99284 ×2; 96374; 96375; 96361; 83690; 85025; 80053; 81001; 74176; G0480; J1885; 80320; J1200; J2550; J7030

== ENCOUNTER 2019-04-14 23:00 | Emergency (ER) | payer MEDICAID ==
[2019-04-14] MEDS ORDERED: KETOROLAC 30 MG/ML VIAL IVP ONE (23:14)
[2019-04-14] MEDS ORDERED: 0.9 % SODIUM CHLORIDE 1000ML 1,000 ML IV SCH ×2 (23:15)
--- NOTE | 2019-04-14 23:20 | Emergency Department Record ---
History of Present Illness - General Chief complaint: Nausea, Vomiting, Diarrhea Stated complaint: DIARRHEA Time Seen by Provider: 04/14/19 23:03 Source: Patient Mode of Arrival: Ambulatory Limitations: No limitations - History of Present Illness Initial comments: 43 yo male presents to ED for evaluation of difficulty urinating associated with right sided low-back pain, also reports loose stools and nausea symptoms. Patient denies fevers, chills, or previous abdominal surgery. Patient reports a frequent history of abdominal pain and vomiting symptoms intermittently. MD complaint: Abdominal pain, Nausea Onset/Timin -: Days(s) Associated Abdominal Pain: Yes Location: Diffuse Radiation: None Severity: Moderate Quality: Cramping Consistency: Intermittent Improves with: None Worsens with: Other (Urination) Associated Symptoms: Denies other symptoms - Related Data Previous Rx's Medication Instructions Recorded Promethazine HCl [Phenergan] 25 mg PO Q8H PRN #15 tablet 10/02/18 Allergies Allergy/AdvReac Type Severity Reaction Status Date / Time Penicillins Allergy SWELLING Verified 04/14/19 23:10 OF THE FACE Sulfa (Sulfonamide Allergy PT UNSURE Verified 04/14/19 23:10 Antibiotics) OF REACTION ondansetron [From Zofran] AdvReac NAUSEA Verified 04/14/19 23:10 Review of Systems Constitutional: Denies: Chills, Fever, Malaise, Night sweats Eyes: Denies: Eye discharge, Eye pain ENT: Denies: Congestion, Ear pain, Epistaxis Respiratory: Denies: Cough, Dyspnea Cardiovascular: Denies: Chest pain, Dyspnea on exertion Endocrine: Denies: Fatigue, Heat or cold intolerance Gastrointestinal: Reports: Abdominal pain, Nausea. Denies: Vomiting Genitourinary: Reports: Dysuria. Denies: Hematuria, Incontinence, Retention Musculoskeletal: Reports: Back pain. Denies: Arthralgia, Gout, Joint swelling Skin: Denies: Bruising, Change in color Neurological: Denies: Abnormal gait, Confusion, Headache, Seizure Psychiatric: Denies: Anxiety Hematological/Lymphatic: Denies: Anemia, Blood Clots Past Medical History - SOCIAL HISTORY Smoking Status: Current every day smoker Drug Use: None - RESPIRATORY Hx Respiratory Disorders: No - CARDIOVASCULAR Hx Cardio Disorders: No - NEURO Hx Neuro Disorders: No - GI Hx GI Disorders: Yes Hx Abdominal Pain: Yes Hx Nausea/Vomiting: Yes Hx Wt Loss/Wt Gain: Yes - Hx Genitourinary Disorders: Yes Hx Kidney Stones: Yes - ENDOCRINE Hx Endocrine Disorders: No - MUSCULOSKELETAL Hx Musculoskeletal Disorders: No - PSYCH Hx Psych Problems: Yes Hx Anxiety: Yes - HEMATOLOGY/ONCOLOGY Hx Hematology/Oncology Disorders: Yes 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 negative: Conjunctival injection, Periorbital swelling, Periorbital tenderness, Scleral icterus - ENT Ear exam: negative: Auricular hematoma, Auricular trauma Nasal Exam: negative: Active bleeding, Discharge, Dried blood, Foreign body Mouth exam: negative: Drooling, Laceration, Muffled voice, Tongue elevation - Neck Neck exam: Normal inspection. negative: Meningismus, Tenderness - Respiratory Respiratory exam: Normal lung sounds bilaterally. negative: Rales, Respiratory distress, Rhonchi, Stridor - Cardiovascular Cardiovascular Exam: Regular rate, Normal rhythm, Normal heart sounds - GI/Abdominal GI/Abdominal exam: Soft. negative: Rebound, Rigid, Tenderness - Rectal Rectal exam: Deferred - exam: Deferred - Extremities Extremities exam: Normal inspection. negative: Pedal edema, Tenderness - Back Back exam: Denies: CVA tenderness (R), CVA tenderness (L) - Neurological Neurological exam: Alert, Normal gait, Oriented X3 - Psychiatric Psychiatric exam: Normal affect, Normal mood - Skin Skin exam: Normal color. negative: Abrasion Type of lesion: negative: abrasion Course - Reevaluation(s) Reevaluation #1: 04/15/19 00:46 Laboratory studies were reviewed and appear grossly unremarkable for an acute process except for moderate blood in the urine. Given the patient's symptoms and history of ureteral calculi, will perform CT imaging to exclude acute ureteral calculi as the source of the patient's symptoms. Reevaluation #2: 04/15/19 01:06 CT Abdomen and Pelvis: No acute ureteral calculi Left nephrolithiasis Patient was reassessed and updated on all results Appears stable for discharge at this time. Medical Decision Making - Lab Data Result diagrams: 04/14/19 23:40 04/14/19 23:40 Disposition Disposition: Discharge Clinical Impression: Dysuria, Abdominal pain with vomiting Disposition: Home, Self-Care Condition: (2) Stable Instructions: Abdominal Pain (ED) Additional Instructions: Return to ED if your symptoms worsen or if you have any concerns. Continue your home medications as prescribed. Follow-up with your family doctor in 3-5 days as directed. Forms: Patient Portal Access Time of Disposition: 01:07 Quality - Quality Measures Quality Measures: N/A - Blood Pressure Screening Does Patient Have Any of the Following: No Blood Pressure Classification: Hypertensive Reading Systolic Measurement: 130 Diastolic Measurement: 91 Screening for High Blood Pressure: < First Hypertensive BP, F/U Documented > [G8950] First Hypertensive Follow-up Interventions: Referral to alternative/primary care provider.
[2019-04-14 23:48] LABS: ABSOLUTE NEUTROPHIL COUNT 3.47; HEMATOCRIT 47.1 % (42.0-52.0); HEMOGLOBIN 15.5 gm/dl (14.0-18.0); MEAN CELL VOLUME 88.2 fl (81-97); MEAN CORPUSCULAR HGB CONC 32.9 g/dl (32-36); MEAN PLATELET VOLUME 9.3 fl (7.4-10.4); PLATELET COUNT 228 K/uL (130-400); RED BLOOD COUNT 5.34 M/uL (4.40-5.70); RED CELL DISTRIBUTION WIDTH 14.5 % (11.5-14.5); WHITE BLOOD COUNT W/O DIFF 8.1 K/uL (4.2-12.2)
[2019-04-14 23:58] LABS: BLOOD UREA NITROGEN 14 mg/dL (6-20); CREATININE 0.9 mg/dL (0.7-1.2); EST GLOMERULAR FILTRATION RATE > 60 mL/min
[2019-04-14 23:59] LABS: LIPASE 80 U/L (13-60); TOTAL PROTEIN 7.3 g/dL (6.6-8.7)
[2019-04-15 00:01] LABS: GLUCOSE,RANDOM 128 mg/dL (74-109)
[2019-04-15 00:03] LABS: ALT/SGPT 11 U/L (<41); AST/SGOT 15 U/L (10.0-50.0)
[2019-04-15 00:04] LABS: ALB/GLOB RATIO 1.5 (1.1-1.8); ALBUMIN 4.4 g/dL (4.0-5.0); ALKALINE PHOSPHATASE 74 U/L (40-129)
[2019-04-15 00:04] LABS: URINE APPEARANCE CLEAR; URINE BILIRUBIN NEGATIVE (NEGATIVE); URINE BLOOD MODERATE (NEGATIVE); URINE COLOR YELLOW; URINE GLUCOSE (UA) NEGATIVE (NEGATIVE); URINE KETONE NEGATIVE (NEGATIVE); URINE LEUKOCYTE ESTERASE NEGATIVE (NEGATIVE); URINE NITRITE NEGATIVE (NEGATIVE); URINE PROTEIN NEGATIVE (NEGATIVE); URINE UROBILINOGEN 0.2 E.U./dL (0.20 - 1.00)
[2019-04-15 00:11] LABS: URINE EPITHELIAL CELLS NONE SEEN (FEW); URINE RBC 0 - 2 (NONE SEEN); URINE WBC NONE SEEN (0-2/hpf)
[2019-04-15 00:17] LABS: ANISOCYTOSIS 1+; PLATELET ESTIMATE NORMAL (NORMAL)
--- NOTE | 2019-04-16 09:26 | CT SCAN REPORT ---
EXAM: CT OF THE ABDOMEN AND PELVIS WITHOUT CONTRAST HISTORY: ABDOMINAL PAIN. TECHNIQUE: Noncontrast CT images are obtained from the dome of the diaphragm to the symphysis pubis. FINDINGS: The lung bases and pleural spaces are clear. The liver is normal. The gallbladder and pancreas are unremarkable. The spleen is unremarkable. The kidneys demonstrate no evidence of solid mass. There is a punctate nonobstructing upper pole calculus on the left. There is no hydronephrosis. The stomach is unremarkable. The small bowel is within normal limits. The appendix is normal. The colon demonstrates no evidence of obstruction or pericolonic inflammation. There is no pelvic adenopathy or soft tissue mass. No free fluid or free air is identified. There is chronic appearing fragmentation of the anterior roof of the right acetabulum, possibly the result of old injury. No acute osseous abnormality is identified. IMPRESSION: PUNCTATE NONOBSTRUCTING LEFT UPPER POLE CALCULUS. NO ACUTE INTRAABDOMINAL INFLAMMATORY PROCESS. CHRONIC APPEARING CHANGES IN THE RIGHT ACETABULUM. CORRELATE WITH CLINICAL HISTORY. JOB NUMBER: [id number] [facility]
== END 2019-04-15 01:10 | disposition home or self-care (01) ==
LOC: ER 23:00
DX: R10.31 Right lower quadrant pain (principal); R30.0 Dysuria; R11.2 Nausea with vomiting, unspecified; R19.7 Diarrhea, unspecified; M54.5 Low back pain; F17.210 Nicotine dependence, cigarettes, uncomplicated
CPT/HCPCS: 74176; 80053; 81001; 83690; 85027; 96361; 96374; 99284; J1885; J7030

== ENCOUNTER 2019-07-29 17:53 | Emergency (ER) | payer MEDICAID ==
--- NOTE | 2019-07-29 18:57 | Emergency Department Record ---
History of Present Illness - General Chief complaint: Nausea, Vomiting, Diarrhea Stated complaint: VOMITING,COUGH,ABN PAIN Time Seen by Provider: 07/29/19 18:55 Source: Patient - History of Present Illness Initial comments: The patient states that he developed diarrhea yesterday and today is also vomiting. He has had 10-15 diarrhea episodes, and is urinating less. He also complains of chills without fevers. He is allergic to zofran but is requesting phenergan for his nausea. He complains of a rash beneath his left axilla which he has had for about 4-6 weeks which peels and drains. He has hx of MRSA and pancreatitis. MD complaint: Abdominal pain, Diarrhea, Nausea, Vomiting - Related Data Previous Rx's Medication Instructions Recorded Promethazine HCl [Phenergan] 25 mg PO Q8H PRN #15 tablet 10/02/18 Clindamycin HCl [Cleocin HCl] 300 mg PO Q8HR #30 capsule 07/29/19 Allergies Allergy/AdvReac Type Severity Reaction Status Date / Time Penicillins Allergy SWELLING Verified 07/29/19 18:48 OF THE FACE Sulfa (Sulfonamide Allergy PT UNSURE Verified 07/29/19 18:48 Antibiotics) OF REACTION ondansetron [From Zofran] AdvReac NAUSEA Verified 07/29/19 18:48 Review of Systems Reviewed: No additional complaints except as noted below Constitutional: Reports: As per HPI. Denies: Chills, Fever, Malaise, Night sweats, Weakness, Weight change Eyes: Reports: As per HPI. Denies: Eye discharge, Eye pain, Photophobia, Vision change ENT: Reports: As per HPI. Denies: Congestion, Dental pain, Ear pain, Epistaxis, Hearing loss, Throat pain Respiratory: Reports: As per HPI. Denies: Cough, Dyspnea, Hemoptysis, Stridor, Wheezes Cardiovascular: Reports: As per HPI. Denies: Arrhythmia, Chest pain, Dyspnea on exertion, Edema, Murmurs, Orthopnea, Palpitations, Paroxysmal nocturnal dyspnea, Rheumatic Fever, Syncope Endocrine: Reports: As per HPI. Denies: Fatigue, Heat or cold intolerance, Polydipsia, Polyuria Gastrointestinal: Reports: As per HPI. Denies: Abdominal pain, Constipation, Diarrhea, Hematemesis, Hematochezia, Melena, Nausea, Vomiting Genitourinary: Reports: As per HPI. Denies: Dysuria, Frequency, Hematuria, Incontinence, Retention, Testicular pain, Testicular mass, Urgency Musculoskeletal: Reports: As per HPI. Denies: Arthralgia, Back pain, Gout, Joint swelling, Myalgia, Neck pain Skin: Reports: As per HPI. Denies: Bruising, Change in color, Change in hair/n ails, Lesions, Pruritus, Rash Neurological: Reports: As per HPI. Denies: Abnormal gait, Confusion, Headache, Numbness, Paresthesias, Seizure, Tingling, Tremors, Vertigo, Weakness Psychiatric: Reports: As per HPI. Denies: Anxiety, Auditory hallucinations, Depression, Homicidal thoughts, Suicidal thoughts, Visual hallucinations Hematological/Lymphatic: Reports: As per HPI. Denies: Anemia, Blood Clots, Easy bleeding, Easy bruising, Swollen glands Past Medical History - SOCIAL HISTORY Smoking Status: Current every day smoker Drug Use: None - RESPIRATORY Hx Respiratory Disorders: No - CARDIOVASCULAR Hx Cardio Disorders: No - NEURO Hx Neuro Disorders: No - GI Hx GI Disorders: Yes Hx Abdominal Pain: Yes Hx Nausea/Vomiting: Yes Hx Wt Loss/Wt Gain: Yes - Hx Genitourinary Disorders: Yes Hx Kidney Stones: Yes - ENDOCRINE Hx Endocrine Disorders: No - MUSCULOSKELETAL Hx Musculoskeletal Disorders: No - PSYCH Hx Psych Problems: Yes Hx Anxiety: Yes - HEMATOLOGY/ONCOLOGY Hx Hematology/Oncology Disorders: Yes 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 negative: External canal tenderness Nasal Exam: Normal inspection. negative: Discharge, Sinus tenderness Mouth exam: Normal external inspection, Tongue normal Teeth exam: Normal inspection. negative: Dental caries Throat exam: Normal inspection. negative: Tonsillar erythema, Tonsillar exudate - Neck Neck exam: Normal inspection, Full ROM. negative: Lymphadenopathy, Meningismus, Tenderness - Respiratory Respiratory exam: Normal lung sounds bilaterally. negative: Respiratory distress - Cardiovascular Cardiovascular Exam: Regular rate, Normal rhythm, Normal heart sounds - GI/Abdominal GI/Abdominal exam: Soft, Normal bowel sounds, Tenderness (right lateral very low abdomen tenderness on palpation and moving up to right lateral lower ribs. ) - Rectal Rectal exam: Deferred - exam: Deferred - Extremities Extremities exam: Normal inspection, Full ROM, Normal capillary refill. negative: Tenderness - Back Back exam: Reports: Normal inspection, Full ROM. Denies: Muscle spasm, Rash noted, Tenderness - Neurological Neurological exam: Alert, CN II-XII intact, Normal gait, Oriented X3, Reflexes normal - Psychiatric Psychiatric exam: Normal affect, Normal mood - Skin Skin exam: Dry, Intact, Normal color, Rash (rash beneath right axilla consistent with MRSA), Warm Type of lesion: negative: Abscess Course - Reevaluation(s) Reevaluation #1: After IV Hydration and phenegan the patient slept and states now he is feeling grealty improved and ready for DC home. He is requesting a PCP referral list to obtain a PCP, and wishes a flu shot and a tetanus update. HE was referred to [facility] for his flu [facility], and a PCP referral list was given. He also was given clindamycin pill and script for a "MRSA-like" rash under his right axilla. He has a hx of MRSA and is allergic to PCN and sulfa. 07/29/19 21:23 Medical Decision Making - Management Options MDM Management: No Additional Work-up Planned - Data Complexity MDM Data: Labs Ordered and/or Reviewed (lipase 65 ), X-Ray Ordered and/or Reviewed (Noncontrast CTAbdPelvis: Single very small 1-2mm nonobstructing left upper pole kidney stone. No other urinary tract calculus. Per radiologist. ) - Lab Data Result diagrams: 07/29/19 19:20 07/29/19 19:20 Disposition Disposition: Discharge Clinical Impression: Nausea vomiting and diarrhea, Dehydration, Infection of skin due to methicillin resistant Staphylococcus aureus (MRSA) Pancreatitis Qualifiers: Chronicity: acute Pancreatitis type: other Acute pancreatitis complication: unspecified Qualified Code(s): K85.80 - Other acute pancreatitis without necrosis or infection Disposition: Home, Self-Care Condition: (1) Good Instructions: Acute Nausea and Vomiting (ED), Abdominal Pain (ED) Additional Instructions: Call [facility] Tuesday (tomorrow) for follow up on your prior workups, for your GI diagnosis and follow up instructions if any. Without fail. Take clindamycin as directed until gone. Go to [facility] for your flu shot. PCP referral list for recheck and routine care. Prescriptions: Clindamycin HCl [Cleocin HCl] 300 mg PO Q8HR #30 capsule Quality - Quality Measures Quality Measures: N/A - Blood Pressure Screening Does Patient Have Any of the Following: No Blood Pressure Classification: Hypertensive Reading Systolic Measurement: 113 Diastolic Measurement: 91 Screening for High Blood Pressure: < Normal BP, F/U Not Required > [G8793]
[2019-07-29] MEDS ORDERED: 0.9 % SODIUM CHLORIDE 1,000 ML BAG IV ONE (19:12)
[2019-07-29 19:30] LABS: ABSOLUTE NEUTROPHIL COUNT 5.85; BASO % 0.5 % (0-6); EOS % 5.7 % (0-6); GRAN % 69.1 % (47-80); HEMATOCRIT 44.6 % (42.0-52.0); HEMOGLOBIN 14.6 gm/dl (14.0-18.0); LYMPH % 17.7 % (16-45); MEAN CELL VOLUME 88.5 fl (81-97); MEAN CORPUSCULAR HGB CONC 32.7 g/dl (32-36); MEAN PLATELET VOLUME 8.8 fl (7.4-10.4); PLATELET COUNT 233 K/uL (130-400); RED BLOOD COUNT 5.04 M/uL (4.40-5.70); RED CELL DISTRIBUTION WIDTH 14.7 % (11.5-14.5); WHITE BLOOD COUNT W/O DIFF 8.5 K/uL (4.2-12.2)
[2019-07-29] MEDS ORDERED: PROMETHAZINE HCL 25 MG/ML VIAL IVP ONE (19:32)
[2019-07-29 19:43] LABS: BLOOD UREA NITROGEN 10 mg/dL (6-20); CREATININE 0.9 mg/dL (0.7-1.2); EST GLOMERULAR FILTRATION RATE > 60 mL/min; LIPASE 65 U/L (13-60); TOTAL PROTEIN 6.9 g/dL (6.6-8.7)
[2019-07-29 19:45] LABS: GLUCOSE,RANDOM 135 mg/dL (74-109)
[2019-07-29 19:48] LABS: ALB/GLOB RATIO 1.7 (1.1-1.8); ALBUMIN 4.3 g/dL (4.0-5.0); ALKALINE PHOSPHATASE 75 U/L (40-129); ALT/SGPT 13 U/L (<41); AST/SGOT 18 U/L (10.0-50.0)
--- NOTE | 2019-07-29 20:05 | CT SCAN REPORT ---
EXAMINATION: CT Abdomen and Pelvis without IV Contrast EXAM DATE: 07/29/2019 7:56 PM TECHNIQUE: Standard protocol CT imaging of the abdomen and pelvis was performed without intravenous c ontrast. INDICATION: Right flank pain. History of kidney stones and lithotripsy. COMPARISON: CT from 04/15/2019 FINDINGS: CT abdomen: A single very small 1-2 mm nonobstructing stone is seen in the upper pole of the left kid damian. No other urinary tract calculus detected. No hydronephrosis or hydroureter on either side. Clear lung bases. Normal heart size. CT pelvis: No abnormal mass or fluid collection. Normal-appearing appendix. No free air or free fluid . No acute bony abnormality. Shallow right acetabulum noted. IMPRESSION: 1. Single very small 1-2 mm nonobstructing left upper pole kidney stone. 2. No other urinary tract calculus. Dictated by: Trent Lopez MD on 07/29/2019 7:57 PM. .
[2019-07-29 20:45] LABS: URINE APPEARANCE CLEAR; URINE BILIRUBIN NEGATIVE (NEGATIVE); URINE BLOOD NEGATIVE (NEGATIVE); URINE COLOR YELLOW; URINE GLUCOSE (UA) NEGATIVE (NEGATIVE); URINE KETONE NEGATIVE (NEGATIVE); URINE LEUKOCYTE ESTERASE NEGATIVE (NEGATIVE); URINE NITRITE NEGATIVE (NEGATIVE); URINE PROTEIN TRACE (NEGATIVE)
[2019-07-29 20:51] LABS: AMPHETAMINE SCREEN URINE NOT DETECTED; BARBITURATE SCREEN URINE NOT DETECTED; BENZODIAZEPINE SCREEN URINE NOT DETECTED; COCAINE SCREEN URINE NOT DETECTED; METHADONE SCREEN URINE NOT DETECTED; METHAMPHETAMINE SCREEN NOT DETECTED; OPIATE SCREEN URINE NOT DETECTED; OXYCODONE SCREEN URINE NOT DETECTED; PHENCYCLIDINE SCREEN URINE NOT DETECTED; PROPOXYPHENE SCREEN URINE NOT DETECTED; THC SCREEN URINE NOT DETECTED; TRICYCLIC ANTIDEPRESSANT SCRN NOT DETECTED
[2019-07-29] MEDS ORDERED: CLINDAMYCIN 150 MG CAP PO ONE (21:21)
[2019-07-29] MEDS ORDERED: Diph,Pert(Acell),Tet Vac 0.5 ML SYR IM ONE (21:22)
== END 2019-07-29 21:48 | disposition home or self-care (01) ==
LOC: ER 17:53
DX: K85.80 Other acute pancreatitis without necrosis or infection (principal); B95.62 Methicillin resistant Staphylococcus aureus infection as the cause of diseases classified elsewhere; E86.0 Dehydration; R11.2 Nausea with vomiting, unspecified; R19.7 Diarrhea, unspecified
CPT/HCPCS: 74176; 80053; 80305; 81003; 83690; 85025; 90715; 96372; 96374; 99284; J2550; J7030

== ENCOUNTER 2019-10-01 22:30 | Emergency (ER) | payer MEDICAID ==
[2019-10-01] MEDS ORDERED: PROMETHAZINE HCL 25 MG/ML VIAL IVP ONE (22:47)
[2019-10-01] MEDS ORDERED: 0.9 % SODIUM CHLORIDE 1,000 ML BAG IV ONE (22:47)
--- NOTE | 2019-10-01 22:47 | Emergency Department Record ---
History of Present Illness - General Stated complaint: VOMITING,DIARRHEA Time Seen by Provider: 10/01/19 22:36 Source: Patient Mode of Arrival: Ambulatory Limitations: No limitations - History of Present Illness Initial comments: 44 yo male presents with recurrent nausea and vomiting with diarrhea. The onset was this evening. No blood in either. He reports a history of recurrent symptoms in the past. He has IBS. He has followed with GI in the past for similar symptoms. No back pain. No fever. No chest pain. He has been out of his Phenergan for about 2-3 months. MD complaint: Diarrhea, Nausea, Vomiting -: Hour(s) Description of Vomiting: Watery Description of Diarrhea: Water Location: Epigastric Radiation: Epigastric Severity: Moderate Quality: Cramping Consistency: Intermittent Worsens with: Eating Context: Other Associated Symptoms: Denies other symptoms - Related Data Previous Rx's Medication Instructions Recorded Promethazine HCl [Phenergan] 25 mg PO Q8H PRN #15 tablet 10/02/18 Promethazine HCl [Phenergan] 25 mg PO Q8H #20 tablet 10/01/19 Allergies Allergy/AdvReac Type Severity Reaction Status Date / Time Penicillins Allergy SWELLING Verified 10/01/19 22:48 OF THE FACE Sulfa (Sulfonamide Allergy PT UNSURE Verified 10/01/19 22:48 Antibiotics) OF REACTION ondansetron [From Zofran] AdvReac NAUSEA Verified 10/01/19 22:48 Review of Systems Constitutional: Denies: Chills, Fever, Malaise, Weakness Eyes: Denies: Eye discharge ENT: Denies: Congestion, Throat pain Respiratory: Denies: Cough, Dyspnea, Hemoptysis, Wheezes Cardiovascular: Denies: Chest pain, Palpitations, Syncope Endocrine: Denies: Fatigue Gastrointestinal: Reports: Abdominal pain, Diarrhea, Nausea, Vomiting. Denies: Constipation, Hematemesis, Hematochezia, Melena Genitourinary: Denies: Dysuria, Frequency, Hematuria Musculoskeletal: Denies: Arthralgia, Back pain, Myalgia Skin: Denies: Bruising, Change in color, Rash Neurological: Denies: Headache Psychiatric: Denies: Anxiety Hematological/Lymphatic: Denies: Easy bleeding, Easy bruising Past Medical History - SOCIAL HISTORY Smoking Status: Current every day smoker Drug Use: None - RESPIRATORY Hx Respiratory Disorders: No - CARDIOVASCULAR Hx Cardio Disorders: No - NEURO Hx Neuro Disorders: No - GI Hx GI Disorders: Yes Hx Abdominal Pain: Yes Hx Nausea/Vomiting: Yes Hx Wt Loss/Wt Gain: Yes - Hx Genitourinary Disorders: Yes Hx Kidney Stones: Yes - ENDOCRINE Hx Endocrine Disorders: No - MUSCULOSKELETAL Hx Musculoskeletal Disorders: No - PSYCH Hx Psych Problems: Yes Hx Anxiety: Yes - HEMATOLOGY/ONCOLOGY Hx Hematology/Oncology Disorders: Yes 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 negative: Conjunctival injection - ENT ENT exam: Normal exam Ear exam: Normal external inspection Nasal Exam: Normal inspection Mouth exam: Normal external inspection - Neck Neck exam: Normal inspection - Respiratory Respiratory exam: Normal lung sounds bilaterally. negative: Respiratory distress - Cardiovascular Cardiovascular Exam: Regular rate, Normal rhythm, Normal heart sounds - GI/Abdominal GI/Abdominal exam: Soft, Normal bowel sounds. negative: Distended, Guarding, Rebound, Rigid, Tenderness - Rectal Rectal exam: Deferred - exam: Deferred - Extremities Extremities exam: Normal inspection - Back Back exam: Denies: CVA tenderness (R), CVA tenderness (L) - Neurological Neurological exam: Alert, Oriented X3 - Psychiatric Psychiatric exam: Normal affect, Normal mood - Skin Skin exam: Dry, Intact, Normal color, Warm Course - Reevaluation(s) Reevaluation #1: EMR reviewed The patient has had 5 CT scans of the abdomen this year 10/01/19 23:24 The CBC was removed. No acute abnormality. 10/01/19 23:32 The BMP is normal The patient was given a refill on his Phenergan for his recurrent symptoms He is to call his PCP for close follow up Medical Decision Making - Lab Data Result diagrams: 10/01/19 21:55 10/01/19 21:55 Disposition Disposition: Discharge Clinical Impression: Nausea vomiting and diarrhea Disposition: Home, Self-Care Condition: (1) Good Instructions: Acute Nausea and Vomiting (ED), Acute Diarrhea (ED) Additional Instructions: Rest and stay well hydrated Call your doctor for follow up in the next week if not improving Take your Phenergan as directed Prescriptions: Promethazine HCl [Phenergan] 25 mg PO Q8H #20 tablet Forms: Patient Portal Access Time of Disposition: 23:24 Quality - Quality Measures Quality Measures: N/A - Blood Pressure Screening Does Patient Have Any of the Following: No Blood Pressure Classification: Hypertensive Reading Systolic Measurement: 126 Diastolic Measurement: 90 Screening for High Blood Pressure: < Pre-Hypertensive BP, F/U Documented > [G8950] Pre-Hypertensive Follow-up Interventions: Referral to alternative/primary care provider.
[2019-10-01 23:05] LABS: ABSOLUTE NEUTROPHIL COUNT 2.72; BASO % 0.6 % (0-6); EOS % 7.8 % (0-6); GRAN % 37.8 % (47-80); HEMATOCRIT 46.7 % (42.0-52.0); HEMOGLOBIN 15.5 gm/dl (14.0-18.0); LYMPH % 44.6 % (16-45); MEAN CELL VOLUME 86.8 fl (81-97); MEAN CORPUSCULAR HEMOGLOBIN 28.8 pg (27-33); MEAN CORPUSCULAR HGB CONC 33.2 g/dl (32-36); MEAN PLATELET VOLUME 9.1 fl (7.4-10.4); MONO % 9.2 % (0-9); PLATELET COUNT 255 K/uL (130-400); RED BLOOD COUNT 5.38 M/uL (4.40-5.70); RED CELL DISTRIBUTION WIDTH 14.6 % (11.5-14.5); WHITE BLOOD COUNT W/O DIFF 7.2 K/uL (4.2-12.2)
[2019-10-01 23:30] LABS: BLOOD UREA NITROGEN 18 mg/dL (6-20); EST GLOMERULAR FILTRATION RATE > 60 mL/min; TOTAL PROTEIN 7.6 g/dL (6.6-8.7)
[2019-10-01 23:32] LABS: GLUCOSE,RANDOM 102 mg/dL (74-109)
[2019-10-01 23:35] LABS: ALB/GLOB RATIO 1.5 (1.1-1.8); ALBUMIN 4.5 g/dL (4.0-5.0); ALKALINE PHOSPHATASE 69 U/L (40-129); ALT/SGPT 12 U/L (<41); AST/SGOT 16 U/L (10.0-50.0)
== END 2019-10-02 00:05 | disposition home or self-care (01) ==
LOC: ER 22:30
DX: R11.2 Nausea with vomiting, unspecified (principal); R19.7 Diarrhea, unspecified; R10.13 Epigastric pain; F17.210 Nicotine dependence, cigarettes, uncomplicated
CPT/HCPCS: 99284 ×2; 96374; 85025; 80053; J2550; J7030